=== PATIENT | female | born 1955 | race Caucasian/White ===

== ENCOUNTER 2024-12-22 18:13 | Inpatient (IN) | payer MEDICARE, MEDICAID, SELFPAY ==
--- OUTSIDE RECORDS SUMMARY | 2024-12-21 12:20 | XMS_ITS | Encounter Summary ---
Author Organization [facility] Address [address] [facility] [address] [place] [phone] Phone Care Team Providers Care New Car Inspector Name Role Phone Pcp, Unknown Primary Care Provider Unavailabl e Reason for Visit * Reason Comments Mental Health Problem * Auth/Cert (Routine) Specialty Diagnoses / Procedures Referred By Carmelo t Referred To Contact Diagnoses Suicidal ideation Referral ID Status Reason Start Date Expiration Date Visits Re quested Visits Authorized [id number] 1 1 Encounter Details Date Type Department Care Team (Latest Contact Info) Description 12/21/2024 12:20 PM EDT - 12/22/2024 5:50 PM EDT Hospital Encounter [facility] [address] [place] [address] Leo Rivera MD [address] [place] [id number] carol Handy Campbell MD [address] [place] [id number] Komal Hernandez MD [address] [place] [phone] Austin Bernal MD [address] [place] [id number] Discharge Disposition: Another Health Care Institution Not Defined Social History Tobacco Use Types Packs/Day Years Used Date Smoking Tobacco: Every Day Cigarettes Smokeless Tobacco: Never Tobacco Cessation:Ready to Q uit: Not Asked; Counseling Given: Not Answered Alcohol Use Standard Drinks/Week Comments Not Currently 0 (1 standard drink = 0.6 oz pur e alcohol) Education Answer Date Recorded Are you interested in more education? Not on gt e 07/05/2022 Are you concerned about learning? Not on file 07/05/2022 No 07/05/2022 No 07/05/2022 Food Answer Date Recorded Within the past 6 months we worried whether our food would run out before we got money to buy more. Never True 12/21/2024 Within the past 6 months the food we bought just didn't last and we didn't have enough money to get more. Never True Residential Stability Answer Date Recor ded What is your housing situation today? I have bridgett sing 12/21/2024 How many times have you move d in the past 12 months? Zero (I did not move) 12/21/2024 Paying for Meds Answer Date Recorded Do you have trouble paying for medicines? No 12/21/2024 Paying Utility Bills Answer Date Record ed Do you have trouble paying your heating or elect ricity bill? No 12/21/2024 Transportation Answer Date Recorded Has the lack of transportati on kept you from medical appointments or from getting medications? No 12/21/2024 Digital Access Answer Date Recorded No 12/21/2024 Yes 12/21/2024 Do you have reliable internet access at home? Ye s 12/21/2024 Do you have a device (e.g., phone, tablet, computer) with a working camera? Yes 12/21/2024 Intimate Partner Violence Answer Date R ecorded Are you denied basic needs s uch as food, clothing, or medical care? No 12/21/2024 In the past 12 months have y ou been in a relationship with a person who hurts, threatens, or tries to control you? No 12/21/2024 Are you denied basic needs s uch as food, clothing, or medical care? No 12/21/2024 In the past 12 months have y ou been in a relationship with a person who hurts, threatens, or tries to control you? No 12/21/2024 Comments Unknown Sex and Gender Information Value Date Recorded Sex Assigned at Female 12/21/2024 12:04 PM EDT Legal Sex Female 9:53 PM EDT Gender Identity Female 12/21/2024 12:04 PM EDT Sexual Orientation Straight 12/21/2024 12 :04 PM EDT documented as of this encounter Last Filed Vital Signs Vital Sign Reading Time Taken Comments Blood Pressure 135/82 12/22/2024 5:43 PM EDT Pulse 88 12/22/2024 5:43 PM EDT Temperature 36.5 C (97.7 F) 12/22/2024 5:43 PM EDT Respiratory Rate 18 12/22/2024 5:43 PM EDT Oxygen Saturation 97% 12/22/2024 5:43 PM EDT Inhaled Oxygen Concentration - - Weight 70.3 kg (155 lb) 12/21/2024 12:08 PM EDT Height 160 cm (5' 3 ) 12/21/2024 12:08 PM EDT Body Mass Index 27.46 12/21/2024 12:08 PM EDT documented in this encounter Functional Status * Calculated C-SSRS Risk Score (Lifetime/Recent) Answer Date of Assessment Author High Risk 12/21/2024 12:05 PM EDT Roselyn Tony RN * [place] Suicide Severity Rating Scale (Screener/Recent Self-Report) Question Answer Date of Assessment Author 1. Wish to be (Past 1 Month) Yes 12:05 PM EDT Roselyn Tony RN 2. Non-Specific Active Suici kayden Thoughts (Past 1 Month) Yes 12/21/2024 12:05 PM EDT Ron Tony RN 3. Active Suicidal Ideation with any Methods (Not Plan) Without Intent to Act (Past 1 Month) Yes 12/21/2024 12:05 PM EDT Roselyn Romero RN 4. Active Suicidal Ideation with Some Intent to Act, Without Specific Plan (Past 1 Month) No 12/21/2024 12:05 PM EDT Roselyn Romero, RN 5. Active Suicidal Ideation with Specific Plan and Intent (Past 1 Month) Yes 12/21/2024 12:05 PM EDT Roselyn Tony, RN 6. Suicidal Behavior (Lifetime) Yes 12:05 PM EDT Roselyn Tony RN documented as of this encounter Discharge Summaries * Fadi Vigil PA-C - 12/22/2024 4:48 PM EDT Emergency Department Observation Disposition Note Arrival Date: 12/21/2024 Chief Complaint Patient presents with Mental Health Problem Observation course: No acute events throughout the the day while in psychiatric observation. Today patient was accepted to psychiatric facility for continued management of acute on chronic psychiatric illness. Test results: No orders to display Results for orders placed or performed during the hospital encounter of 12/21/24 Toxicology screen, urine Specimen: Urine Result Value Ref Range URINE CANNABINOIDS NONE DETECTED NONE DETECTED URINE COCAINE METAB NONE DETECTED NONE DETECTED URINE AMPHETAMINES NONE DETECTED NONE DETECTED URINE METHADONE NONE DETECTED NONE DETECTED URINE OPIATES NONE DETECTED NONE DETECTED URINE PHENCYCLIDINE NONE DETECTED NONE DETECTED URINE OXYCODONE NONE DETECTED NONE DETECTED URINE BARBITURATES NONE DETECTED NONE DETECTED URINE BENZODIAZEPINE Positive (*) NONE DETECTED URINE BUPRENORPHINE NONE DETECTED NONE DETECTED Fentanyl, urine NONE DETECTED NONE DETECTED Ethanol, blood Specimen: Blood Result Value Ref Range ETHANOL <10 <10 mg/dL LFTs (hepatic panel) Specimen: Blood Result Value Ref Range ALKALINE PHOSPHATASE 69 39 - 117 U/L TOTAL BILIRUBIN 0.4 0.0 - 1.2 mg/dL DIRECT BILIRUBIN 0.2 0.0 - 0.2 mg/dL Bilirubin (Indirect) 0.2 0 - 1.5 mg/dL AST 20 0 - 37 U/L ALT 18 0 - 40 U/L TOTAL PROTEIN 6.9 6.5 - 8.0 g/dL ALBUMIN 4.2 3.9 - 4.8 g/dL GLOBULIN 2.7 1 - 4.8 g/dL A/G Ratio 1.56 1.00 - 4.80 RATIO Basic metabolic panel Specimen: Blood Result Value Ref Range SODIUM 136 133 - 146 mmol/L CHLORIDE 103 96 - 108 mmol/L POTASSIUM 4.4 3.3 - 5.1 mmol/L CO2 22 21 - 35 mmol/L BUN 18 6 - 19 mg/dL CREATININE 1.00 0.5 - 1.5 mg/dL GLUCOSE 100 (H) 70 - 99 mg/dL CALCIUM 9.3 8.4 - 10.3 mg/dL EGFR 61 >59 mL/min/1.73m2 ANION GAP 15 10 - 20 mmol/L CBC and differential Specimen: Blood Result Value Ref Range WBC 6.13 4.00 - 11.00 K/uL RBC 4.69 4.00 - 5.20 M/uL HGB 13.2 12.0 - 16.0 g/dL HCT 39.2 36.0 - 46.0 % PLT 260 150 - 450 K/uL MCV 83.6 80.0 - 100.0 fL MCH 28.1 27.0 - 31.0 pg MCHC 33.7 32.0 - 36.0 g/dL RDW 13.1 11.5 - 14.5 % MPV 8.7 8.4 - 12.0 fL NRBC 0.00 0.00 /100 WBCs ABSOLUTE NRBC 0.00 0.00 K/uL DIFF METHOD Auto NEUTS 66.6 48.0 - 76.0 % LYMPHS 22.7 18.0 - 41.0 % MONOS 7.2 4.0 - 11.0 % EOS 2.1 0.0 - 5.0 % BASOS 1.1 0.0 - 1.5 % Granulocytes, immature (%) 0.3 0.0 - 0.9 % ABSOLUTE NEUTS 4.08 1.92 - 7.60 K/uL ABSOLUTE LYMPHS 1.39 0.72 - 4.10 K/uL ABSOLUTE MONOS 0.44 0.16 - 1.10 K/uL ABSOLUTE EOS 0.13 0.00 - 0.50 K/uL ABSOLUTE BASOS 0.07 0.00 - 0.15 K/uL Granulocytes, immature 0.02 0.00 - 0.09 K/uL Brief discharge exam: BP 132/77 Pulse 74 Temp 36.4 ??C (97.5 ??F) (Tympanic) Resp 16 Ht 160 cm (5' 3 ) Wt 70.3 kg (155 lb) SpO2 96% BMI 27.46 kg/m?? Constitutional: Afebrile, nontoxic in appearance, in NAD. Cardiovascular: Regular rate. Hands and feet warm and well-perfused. Respiratory: Speaking in full sentences, no respiratory distress. MS: Moving all extremities. Neuro: Patient alert and oriented. Non-focal. Skin: Warm, dry. Psych: SI Mood congruent. Denies HI/AH/VH. Cooperative. Vital signs reviewed. Nurses notes reviewed. Diagnosis: Clinical Impression Diagnosis Description Comment Final diagnoses Suicidal ideation Suicidal ideation -- Hypertension, unspecified type Hypertension, unspecified type -- Final Disposition: Transferred Disposition plan: [facility] Communication with outpatient providers: per [facility] Discharge management: 30 minutes or less spent on discharge management on the observation dischargeday. Fadi Vigil PA-C Cosigned by Leo Rivera MD at 12/22/2024 5:51 PM EDT Associated attestation - Leo Rivera MD - 12/22/2024 5:51 PM EDT I confirm that I have reviewed and agree with the plan from the [facility]. documented in this encounter Discharge Instructions * Attachments The following attachments cannot be sent through Care Everywhere. * Hypertension: General Info (Iranian) documented in this encounter Medications at Time of Discharge acetaminophen (TYLENOL) 325 mg tablet Take 650 mg by mouth 3 (three) times a day as needed. cloNIDine HCL (CATAPRES) 0.1 MG tablet Take 0.1 mg by mouth daily as needed (RLS and anxiety). 11/12/2024 docusate (COLACE) 100 mg tablet Take 100 mg by mouth 2 (two) times a day as needed for mild constipation. FLUoxetine (PROZAC) 20 MG capsule Take 20 mg by mouth daily. ibuprofen (ADVIL,MOTRIN) 800 MG tablet Take 800 mg by mouth every 8 (eight) hours as needed for pain (specific location in comments). INVEGA SUSTENNA 117 mg/0.75 mL Syrg IM injection syringe Inject 117 mg into the muscle every 30 (thirty) days. LORazepam (ATIVAN) 1 MG tablet Take 1 mg by mouth 3 (three) times a day as needed for anxiety. multivitamin per tablet as directed Orally QD polyethylene glycol (MIRALAX) 17 gram packet Take 17 g by mouth daily as needed for mild constipation. propranoloL (INDERAL) 10 MG immediate release tablet Take 20 mg by mouth 3 (three) times a day as needed (anxiety). QUEtiapine (SEROQUEL) 200 MG tablet Take 200 mg by mouth 2 (two) times a day. QUEtiapine (SEROQUEL) 25 MG tablet Take 25 mg by mouth 4 (four) times a day as needed (anxiety, agitation). QUEtiapine (SEROQUEL) 50 MG tablet Take 50 mg by mouth nightly at bedtime. 11/12/2024 clonazePAM (KLONOPIN) 1 MG tablet Take 1 mg by mouth 3 (three) times a day as needed for anxiety. 11/23/2024 Lactobacillus acidophilus Cap as directed Orally QD omega-3 fatty acids (FISH OIL CONCENTRATE) 1,000 mg Cap Take 1 capsule by mouth as needed. documented as of this encounter Consult Notes Only the most recent of 2 notes is shown. * Aubree Galeana - 12/22/2024 11:53 AM EDT Met with the client for daily reassessment. Client appeared her stated age, was dressed in hospitalattire, and was alert and oriented x4. She presented as calm, cooperative, and pleasant throughout the interaction. Client reported feeling better after taking medication for akathisia. She denied suicidal or homicidal ideation and auditory or visual hallucinations at this time, though noted she often feels like ???crawling out of her skin.?? She stated that she slept well and ate breakfast this morning. Client is agreeable to the ongoing bed search plan. Aubree Galeana LCSW documented in this encounter ED Notes * Fadi Vigil PA-C - 12/22/2024 4:46 PM EDT EKG ordered at request of accepting psychiatric facility. NSR 74 bpm. Normal intervals. No ectopy. Left axis. No acute ischemic changes. * Curt Patel RN - 12/22/2024 12:47 PM EDT ED Nursing Progress Note Pt requesting medication for anxiety. MD Obando in the room and consulted by this RN who states we should try Seroquel first. Pt refusing seroquel, states it makes her dizzy d/t invega sustenna. Pt states she would rather wait until ativan is due. * Curt Patel RN - 12/22/2024 9:00 AM EDT ED Nursing Progress Note Pt up to nurses station requesting ativan for akathesia sx. Per PRN order unable to give at this time. MD notified, who orders benadryl 50 mg PRN. * Bertha Mtz RN - 12/22/2024 6:18 AM EDT ED Nursing Progress Note Pt came to the nurses station asking for gingerale, tylenol and ativan. Given her request and per MAR. Pt states she had a good nights sleep. Pleasant, calm and cooperative at this time * Bertha Mtz RN - 12/22/2024 3:52 AM EDT ED Nursing Progress Note Pt asleep at this time, breathing even and unlabored with equal rise and fall of chest, making independent movements in bed, in NAD * Bertha Mtz RN - 12/22/2024 1:59 AM EDT ED Nursing Progress Note Pt asleep at this time, breathing even and unlabored with equal rise and fall of chest, making independent movements in bed, in NAD * Bertha Mtz RN - 12/22/2024 12:07 AM EDT ED Nursing Progress Note Pt asleep at this time, breathing even and unlabored with equal rise and fall of chest, making independent movements in bed, in NAD * Bertha Mtz RN - 12/21/2024 10:15 PM EDT ED Nursing Progress Note Daughter Juani called for an update, spoke with her about how the pt will remain a voluntary bedsearch. Juani mentioned that if possible to avoid [facility] as a placement for the pt due to apast experience she had there that was traumatizing. Will relay to dayshift team that the daughter and pt are looking to either stay at our facility or [facility] that it would be best for the pt. * Leo Rivera MD - 12/21/2024 5:23 PM EDT Emergency Department Observation Initial Note Arrival Date: 12/21/2024 Chief Complaint Patient presents with Mental Health Problem History of Present Illness: Ilsa Powers is a 69 y.o. female, h/o depression, here with suicidal ideation with plan ED Course: Patient presented with primary psychiatric complaints. The patient was medically cleared for [facility] evaluation. The patient was evaluated by [facility] who recommended inpatient psychiatric hospitalization. The patient was placed in ED psychiatric observation status for continued monitoring and reassessmentswhile awaiting placement. Relevant past medical history: No past medical history on file. Social history: Social History Socioeconomic History Marital status: Single Spouse name: Not on file Number of children: Not on file Years of education: Not on file Highest education level: Not on file Occupational History Not on file Tobacco Use Smoking status: Every Day Types: Cigarettes Smokeless tobacco: Never Vaping Use Vaping status: never used Substance and Sexual Activity Alcohol use: Not Currently Drug use: Never Sexual activity: Not Currently Other Topics Concern Not on file Social History Narrative Not on file Family history: No family history on file. Physical Exam: Constitutional: Afebrile, nontoxic in appearance, in NAD. Cardiovascular: Regular rate. Hands and feet warm and well-perfused. Respiratory: Speaking in full sentences, no respiratory distress. MS: Moving all extremities. Neuro: Grossly non-focal. Vision is grossly intact to both eyes, EOM grossly intact, PERRL. Hearingis grossly intact to both ears. No olfactory deficits are noted. No obvious facial sensory deficitsare noted. Motor function of the face is equal and symmetric. Shoulder shrug is intact. Tongue is in the midline. Skin: Warm, dry. Psych: Endorses SI. Denies HI/AH/VH. Cooperative. Vital signs reviewed. Nurses notes reviewed. Observation Medical Decision Making and Plan: Continue bed search per [facility] recommendations Ongoing mental health evaluation and treatment pending disposition as determined by [facility] Routine psych consult at 24 hours, appreciate recommendations Continue home meds PRN Ativan for agitation/anxiety Disposition endpoints: If [facility] finds an inpatient bed, then the patient will be admitted or transferred to the appropriate facility. [facility] to reassess need for inpatient psychiatric placement. Section 12: Alisa Rivera MD * Phylicia Mauricio RN - 12/21/2024 3:54 PM EDT ED Nursing Progress Note [facility] at bedside * Phylicia Mauricio RN - 12/21/2024 3:14 PM EDT ED Nursing Progress Note Patient expressing increased anxiety d/t population of pod. Patient verbally redirected and broughtback into her room. * Phylicia Mauricio RN - 12/21/2024 2:47 PM EDT ED Nursing Progress Note Patient ambulating around milieu independently. Requesting daily medications, aware. * Roselyn Tony RN - 12/21/2024 11:57 AM EDT Pt arrived via ambulance. Roomed on arrival and report taken at the bedside. Pt [facility] for eval of SI with plan and intent. Pt reports she started Invega in October. It makes her feel jittery and shaky. Her daughter really wanted her to give a real chance so she did the second dose in November. She is very tired of feeling unwell and would rather be . Pt states she had some ativan [employer] and it has helped her anxiety some. Calm and answering questions on arrival. * Leo Rivera MD - 12/21/2024 11:52 AM EDT Chief Complaint Chief Complaint Patient presents with Mental Health Problem History of Present Illness The patient, Ilsa Powers,is a 69 y.o. female who presents for evaluation of Mental Health Problem The patient reports History of depression who is presenting due to suicidal ideation. She was recently started on Invega injections does not believe they are working. She lives at the [facility] and was complaining of thoughts of wanting to harm herself with a plan to choke herself. No HI or AVH. She took Ativan prior to arrival which did help with her anxiety. She denies regular alcohol or drug use. No self-harm reported. Unless otherwise specified, I have reviewed and agree with the triage and nursing notes. ROS A ten point review of systems was negative except what was noted in the HPI. Review of Systems Past Medical History No past medical history on file. Past Surgical History No past surgical history on file. Home Medications Prior to Admission medications Medication Sig acetaminophen (TYLENOL) 325 mg tablet 650 mg, 3 times daily PRN cloNIDine HCL (CATAPRES) 0.1 MG tablet 0.1 mg, Daily as needed docusate (COLACE) 100 mg tablet 100 mg, 2 times daily PRN FLUoxetine (PROZAC) 20 MG capsule 20 mg, Daily ibuprofen (ADVIL,MOTRIN) 800 MG tablet 800 mg, Every 8 hours PRN INVEGA SUSTENNA 117 mg/0.75 mL Syrg IM injection syringe 117 mg, Every 30 days LORazepam (ATIVAN) 1 MG tablet 1 mg, 3 times daily PRN multivitamin per tablet as directed Orally QD polyethylene glycol (MIRALAX) 17 gram packet 17 g, Daily as needed propranoloL (INDERAL) 10 MG immediate release tablet 20 mg, 3 times daily PRN QUEtiapine (SEROQUEL) 200 MG tablet 200 mg, 2 times daily QUEtiapine (SEROQUEL) 25 MG tablet 25 mg, 4 times daily PRN QUEtiapine (SEROQUEL) 50 MG tablet 50 mg, Nightly clonazePAM (KLONOPIN) 1 MG tablet 1 mg, 3 times daily PRN Lactobacillus acidophilus Cap as directed Orally QD omega-3 fatty acids (FISH OIL CONCENTRATE) 1,000 mg Cap 1 capsule, Oral, As needed Allergies No Known Allergies Social and Family History Social History Tobacco Use Smoking status: Every Day Types: Cigarettes Smokeless tobacco: Never Substance Use Topics Alcohol use: Not Currently Social History Substance and Sexual Activity Drug Use Never No family history on file. Physical Exam Vital Signs: ED Triage Vitals [12/21/24 1208] Encounter Vitals Group BP (!) 189/109 Systolic BP Percentile Diastolic BP Percentile Heart Rate 89 Respiratory Rate 16 Temperature 36.5 ??C (97.7 ??F) Temp Source Tympanic SpO2 96 % Weight 155 lb Height 5' 3 Head Circumference Peak Flow Pain Score Pain Loc Pain Education Exclude from Growth Chart Physical Exam Vitals and nursing note reviewed. Constitutional: Appearance: Normal appearance. HENT: Head: Normocephalic and atraumatic. Mouth/Throat: Mouth: Mucous membranes are moist. Pharynx: Oropharynx is clear. Eyes: Extraocular Movements: Extraocular movements intact. Pupils: Pupils are equal, round, and reactive to light. Cardiovascular: Rate and Rhythm: Normal rate and regular rhythm. Pulmonary: Effort: Pulmonary effort is normal. Breath sounds: Normal breath sounds. Musculoskeletal: General: No signs of injury. Normal range of motion. Cervical back: Normal range of motion. Skin: General: Skin is warm and dry. Neurological: General: No focal deficit present. Mental Status: She is alert and oriented to person, place, and time. Mental status is at baseline. Psychiatric: Comments: Depressed mood. Endorsing SI Laboratory Testing Results for orders placed or performed during the hospital encounter of 12/21/24 Toxicology screen, urine Specimen: Urine Result Value Ref Range URINE CANNABINOIDS NONE DETECTED NONE DETECTED URINE COCAINE METAB NONE DETECTED NONE DETECTED URINE AMPHETAMINES NONE DETECTED NONE DETECTED URINE METHADONE NONE DETECTED NONE DETECTED URINE OPIATES NONE DETECTED NONE DETECTED URINE PHENCYCLIDINE NONE DETECTED NONE DETECTED URINE OXYCODONE NONE DETECTED NONE DETECTED URINE BARBITURATES NONE DETECTED NONE DETECTED URINE BENZODIAZEPINE Positive (*) NONE DETECTED URINE BUPRENORPHINE NONE DETECTED NONE DETECTED Fentanyl, urine NONE DETECTED NONE DETECTED Ethanol, blood Specimen: Blood Result Value Ref Range ETHANOL <10 <10 mg/dL LFTs (hepatic panel) Specimen: Blood Result Value Ref Range ALKALINE PHOSPHATASE 69 39 - 117 U/L TOTAL BILIRUBIN 0.4 0.0 - 1.2 mg/dL DIRECT BILIRUBIN 0.2 0.0 - 0.2 mg/dL Bilirubin (Indirect) 0.2 0 - 1.5 mg/dL AST 20 0 - 37 U/L ALT 18 0 - 40 U/L TOTAL PROTEIN 6.9 6.5 - 8.0 g/dL ALBUMIN 4.2 3.9 - 4.8 g/dL GLOBULIN 2.7 1 - 4.8 g/dL A/G Ratio 1.56 1.00 - 4.80 RATIO Basic metabolic panel Specimen: Blood Result Value Ref Range SODIUM 136 133 - 146 mmol/L CHLORIDE 103 96 - 108 mmol/L POTASSIUM 4.4 3.3 - 5.1 mmol/L CO2 22 21 - 35 mmol/L BUN 18 6 - 19 mg/dL CREATININE 1.00 0.5 - 1.5 mg/dL GLUCOSE 100 (H) 70 - 99 mg/dL CALCIUM 9.3 8.4 - 10.3 mg/dL EGFR 61 >59 mL/min/1.73m2 ANION GAP 15 10 - 20 mmol/L CBC and differential Specimen: Blood Result Value Ref Range WBC 6.13 4.00 - 11.00 K/uL RBC 4.69 4.00 - 5.20 M/uL HGB 13.2 12.0 - 16.0 g/dL HCT 39.2 36.0 - 46.0 % PLT 260 150 - 450 K/uL MCV 83.6 80.0 - 100.0 fL MCH 28.1 27.0 - 31.0 pg MCHC 33.7 32.0 - 36.0 g/dL RDW 13.1 11.5 - 14.5 % MPV 8.7 8.4 - 12.0 fL NRBC 0.00 0.00 /100 WBCs ABSOLUTE NRBC 0.00 0.00 K/uL DIFF METHOD Auto NEUTS 66.6 48.0 - 76.0 % LYMPHS 22.7 18.0 - 41.0 % MONOS 7.2 4.0 - 11.0 % EOS 2.1 0.0 - 5.0 % BASOS 1.1 0.0 - 1.5 % Granulocytes, immature (%) 0.3 0.0 - 0.9 % ABSOLUTE NEUTS 4.08 1.92 - 7.60 K/uL ABSOLUTE LYMPHS 1.39 0.72 - 4.10 K/uL ABSOLUTE MONOS 0.44 0.16 - 1.10 K/uL ABSOLUTE EOS 0.13 0.00 - 0.50 K/uL ABSOLUTE BASOS 0.07 0.00 - 0.15 K/uL Granulocytes, immature 0.02 0.00 - 0.09 K/uL Radiology Testing No orders to display ED Medication from 12/21/2024 1152 to 12/21/20241724 Date/Time Order Dose Route Action Action by Comments 12/21/20241543 EDT LORazepam (ATIVAN) tablet 1 mg 1 mg Oral Given Phylicia Mauricio RN -- 12/21/20241543 EDT FLUoxetine (PROzac) capsule 20 mg 20 mg Oral Not Given Phylicia Mauricio RN -- MDM Assessment and Plan: Patient is a 69-year-old female presenting due to suicidal ideation with plan. Will obtain [facility] evaluation for further recommendations. No signs of trauma or self-harm on exam. Patient has no medical complaints at this time. ED Course as of 12/21/241724Dec 21, 20241724 [facility] met with patient and placed her as an inpatient bed search voluntarily. Home meds have been ordered. Patient remains calm and cooperative. Patient signed out to Dr. Campbell pending inpatient bed search [CN] ED Course User Index [CN] Leo Rivera MD Clinical Impressions as of 12/21/241724 Suicidal ideation Clinical Impression Diagnosis Description Comment Final diagnosis Suicidal ideation Suicidal ideation -- Disposition: Patient signed out to Leo Sifuentes MD 12/21/241724 documented in this encounter Plan of Treatment Not on file documented as of this encounter Procedures Procedure Name Priority Date/Time Associated Diagnosis Comments TOXICOLOGY SCREEN, URINE STAT 12/21/2024 1:43 PM EDT ETHANOL, BLOOD STAT 12/21/2024 12:25 PM EDT LFTS (HEPATIC PANEL) STAT 12/21/2024 12:25 PM EDT CBC AND DIFFERENTIAL STAT 12/21/2024 12:25 PM EDT BASIC METABOLIC PANEL STAT 12/21/2024 12:25 PM EDT documented in this encounter Results * (ABNORMAL) Toxicology screen, urine (12/21/2024 1:43 PM EDT) URINE CANNABINOIDS NONE DETECTED NONE DETECTED [facility] Comment:Cutoff: 50 ng/mL URINE COCAINE METAB NONE DETECTED NONE DETECTED [facility] Comment:Cutoff: 300 ng/mL URINE AMPHETAMINES NONE DETECTED NONE DETECTED [facility] Comment:Cutoff: 1000 ng/mL URINE METHADONE NONE DETECTED NONE DETECTED [facility] Comment:Cutoff: 300 ng/mL URINE OPIATES NONE DETECTED NONE DETECTED [facility] Comment:Cutoff: 300 ng/mL URINE PHENCYCLIDINE NONE DETECTED NONE DETECTED [facility] Comment:Cutoff: 25 ng/mL URINE OXYCODONE NONE DETECTED NONE DETECTED [facility] Comment:Cutoff: 300 ng/mL URINE BARBITURATES NONE DETECTED NONE DETECTED [facility] Comment:Cutoff: 200 ng/mL URINE BENZODIAZEPINE Positive(A) NONE DETECTED [facility] Comment:Cutoff: 200 ng/mL URINE BUPRENORPHINE NONE DETECTED NONE DETECTED [facility] Comment:Cutoff: 5 ng/mL Fentanyl, urine NONE DETECTED NONE DETECTED [facility] Comment: Cutoff: 5 ng/mL INTERPRETATION FOR TOXICOLOGY PANEL: These results are unconfirmed and should be used for Medical Treatment purposes only. Urine (Urine) 12/21/2024 1:4 3 PM EDT 12/21/2024 1:57 PM EDT Aaron Galvan MD, MATTI URINE ORDERABLES Final Result [address] [id number] * Ethanol, blood (12/21/2024 12:25 PM EDT) ETHANOL <10 <10 mg/dL [facility] Blood 12/21/2024 12:2 5 PM EDT 12/21/2024 12:31 PM EDT Aaron Galvan MD, MBA LAB BLOOD ORDERABLES Fi nal Result Performing Organization Address [facility] Co de Phone Number [address] [address] * LFTs (hepatic panel) (12/21/2024 12:25 PM EDT) ALKALINE PHOSPHATASE 69 39 - 117 U/L [facility] TOTAL BILIRUBIN 0.4 0.0 - 1.2 mg/dL [facility] DIRECT BILIRUBIN 0.2 0.0 - 0.2 mg/dL [facility] Bilirubin (Indirect) 0.2 0 - 1.5 mg/dL [facility] AST 20 0 - 37 U/L [facility] ALT 18 0 - 40 U/L [facility] TOTAL PROTEIN 6.9 6.5 - 8.0 g/dL [facility] ALBUMIN 4.2 3.9 - 4.8 g/dL [facility] GLOBULIN 2.7 1 - 4.8 g/dL [facility] A/G Ratio 1.56 1.00 - 4.80 RATIO [facility] Blood 12/21/2024 12:2 5 PM EDT 12/21/2024 12:31 PM EDT Aaron Galvan MD, MBA LAB BLOOD ORDERABLES Fi nal Result Performing Organization Address [facility]/ZIP Co de Phone Number [address] [address] * (ABNORMAL) Basic metabolic panel (12/21/2024 12:25 PM EDT) SODIUM 136 133 - 146 mmol/L [facility] CHLORIDE 103 96 - 108 mmol/L [facility] POTASSIUM 4.4 3.3 - 5.1 mmol/L [facility] CO2 22 21 - 35 mmol/L [facility] BUN 18 6 - 19 mg/dL [facility] CREATININE 1.00 0.5 - 1.5 mg/dL [facility] GLUCOSE 100(H) 70 - 99 mg/dL [facility] CALCIUM 9.3 8.4 - 10.3 mg/dL [facility] EGFR 61 >59 mL/min/1.7 3m2 [facility] Comment:Estimated glomerular filtration rate calculated using the CKD-EPI refit equation. ANION GAP 15 10 - 20 mmol/L [facility] Blood 12/21/2024 12:2 5 PM EDT 12/21/2024 12:31 PM EDT Aaron Cole [place], MATTI LAB BLOOD ORDERABLES nal Result [facility] [address] [place] [address] * CBC and differential (12/21/2024 12:25 PM EDT) WBC 6.13 4.00 - 11.00 K/uL [facility] RBC 4.69 4.00 - 5.20 M/uL [facility] HGB 13.2 12.0 - 16.0 g/dL [facility] HCT 39.2 36.0 - 46.0 % [facility] PLT 260 150 - 450 K/uL [facility] MCV 83.6 80.0 - 100.0 fL [facility] MCH 28.1 27.0 - 31.0 pg [facility] MCHC 33.7 32.0 - 36.0 g/dL [facility] RDW 13.1 11.5 - 14.5 % [facility] MPV 8.7 8.4 - 12.0 fL [facility] NRBC 0.00 0.00 /100 WBCs [facility] ABSOLUTE NRBC 0.00 0.00 K/uL [facility] DIFF METHOD Auto [facility] NEUTS 66.6 48.0 - 76.0 % [facility] LYMPHS 22.7 18.0 - 41.0 % [facility] MONOS 7.2 4.0 - 11.0 % [facility] EOS 2.1 0.0 - 5.0 % [facility] BASOS 1.1 0.0 - 1.5 % [facility] Granulocytes, immature (%) 0.3 0.0 - 0.9 % [facility] ABSOLUTE NEUTS 4.08 1.92 - 7.60 K/uL [facility] ABSOLUTE LYMPHS 1.39 0.72 - 4.10 K/uL [facility] ABSOLUTE MONOS 0.44 0.16 - 1.10 K/uL [facility] ABSOLUTE EOS 0.13 0.00 - 0.50 K/uL [facility] ABSOLUTE BASOS 0.07 0.00 - 0.15 K/uL [facility] Granulocytes, immature 0.02 0.00 - 0.09 K/uL [facility] Blood 12/21/2024 12:2 5 PM EDT 12/21/2024 12:31 PM EDT Aaron Galvan MD, MATTI LAB BLOOD ORDERABLES nal Result Performing Organization Address City/State/[facility] Co de Phone Number [facility] [address] [place] [address] documented in this encounter Visit Diagnoses Diagnosis Suicidal ideation- Primary Suicidal ideation Hypertension, unspecified type documented in this encounter Admitting Diagnoses Diagnosis Suicidal ideation documented in this encounter Administered Medications Active Administered Medications - up to 3 most recent administrations Medication Order MAR Action Action Date Dose Rate Site acetaminophen (TYLENOL) tablet 650 mg 650 mg, Oral, 3 times daily PRN, mild pain or 1-3 (on a general 0-10 scale), moderate pain or 4-6 (on a general 0-10 scale), Starting on Fri12/21/24 at 1541 Given 12/22/2024 6:12 AM EDT 650 mg diphenhydrAMINE (BENADRYL) capsule 50 mg 50 mg, Oral, Every 6 hours PRN, other (free text field), anxiety or akithesia, Starting on Fri12/22/24 at 0853 Given 12/22/2024 9:09 AM EDT 50 mg FLUoxetine (PROzac) capsule 20 mg 20 mg, Oral, Daily, First dose on Fri12/21/24 at 1545 Given 12/22/2024 9:08 AM EDT 20 mg LORazepam (ATIVAN) tablet 1 mg 1 mg, Oral, 3 times daily PRN, anxiety, Starting on Fri12/21/24 at 1540 Given 12/22/2024 1:49 PM EDT 1 mg Given 12/22/2024 6:14 AM EDT 1 mg Given 12/21/2024 3:44 PM EDT 1 mg propranoloL (INDERAL) IMMEDIATE release tablet 20 mg 20 mg, Oral, 3 times daily PRN, anxiety, Starting on Fri12/21/24 at 1540, take consistently with meals or on an empty stomach. Given 12/22/2024 9:09 AM EDT 20 mg Given 12/21/2024 8:01 PM EDT 20 mg QUEtiapine (SEROQUEL) tablet 200 mg 200 mg, Oral, 2 times daily, First dose on Fri12/21/24 at 2100 Given 12/21/2024 8:09 PM EDT 200 mg documented in this encounter Active and Recently Administered Medications Times are shown in EDT. Scheduled Medication Order 12/20/2024 12/21/2024 12/22/2024 FLUoxetine (PROzac) capsule 20 mg 20 mg, Oral, Daily, First dose on Fri12/21/24 at 1545 1544 (Not Given - Provider: Phylicia Mauricio RN - Reason: Patient/family refused) 09 (Given - Provider: Curt Patel, IZZY) QUEtiapine (SEROQUEL) tablet 200 mg 200 mg, Oral, 2 times daily, First dose on Fri12/21/24 at 2099 2008 (Given - Provider: Bertha Mtz RN) 0847 (Not Given - Provider: Curt Patel, RN - Reason: Patient/family refused - Comment: Pt states she only gets this at night. Per Nanette CARRILLO, pt ordered for BID but refused AM dose x2 weeks)2099 (Due) QUEtiapine (SEROQUEL) tablet 50 mg 50 mg, Oral, Nightly, First dose on Fri12/21/24 at 2100 2005 (Not Given - Provider: Bertha Mtz RN - Reason: Patient/family refused) 2100 (Due) PRN Medication Order 12/20/2024 12/21/2024 12/22/2024 acetaminophen (TYLENOL) tablet 650 mg 650 mg, Oral, 3 times daily PRN, mild pain or 1-3 (on a general 0-10 scale), moderate pain or 4-6 (on a general 0-10 scale), Starting on Fri12/21/24 at 1541 0612 (Given - Provid er: Bertha Mtz RN) cloNIDine HCL (CATAPRES) tablet 0.1 mg 0.1 mg, Oral, Daily as needed, RLS and anxiety, Starting on Fri12/21/24 at 1540 diphenhydrAMINE (BENADRYL) capsule 50 mg 50 mg, Oral, Every 6 hours PRN, other (free text field), anxiety or akithesia, Starting on Fri12/22/24 at 0853 0909 (Given - Provid er: Curt Patel RN) docusate sodium (COLACE) capsule 100 mg 100 mg, Oral, 2 times daily PRN, mild constipation, moderate constipation, Starting on Fri12/21/24 at 1540 LORazepam (ATIVAN) tablet 1 mg 1 mg, Oral, 3 times daily PRN, anxiety, Starting on Fri12/21/24 at 1540 1544 (Given - Provider: Phylicia Mauricio RN) 0614 (Given - Provider: Bertha Mtz RN)1349 (Given - Provider: Curt Patel, IZZY) propranoloL (INDERAL) IMMEDIATE release tablet 20 mg 20 mg, Oral, 3 times daily PRN, anxiety, Starting on Fri12/21/24 at 1540, take consistently with meals or on an empty stomach. 2000 (Given - Provider: Bertha Mtz RN) 0909 (Given - Provider: Curt Patel, IZZY) QUEtiapine (SEROQUEL) tablet 25 mg 25 mg, Oral, 4 times daily PRN, anxiety, agitation, Starting on Fri12/21/24 at 1541 documented in this encounter Care Teams New Car Inspector Relationship Specialty Start Date End Date Pcp, Unknown PCP - General 10/18/24 documented as of this encounter Additional Source Comments The information contained in this document represents components of the legal health record. It is not the complete legal health record.[facility]
--- NOTE | 2024-12-22 18:49 | PC.NURSE ---
Nursing note: 69 year old female DX: Schizoaffective disorder BiPolar type. Patient arrived to unit approximately 1840. Cooperative with skin check. Reports she is here due to bad reaction from Invega injection. Reports she is experiencing akathisia since initial injection in November. States it feels like I am crawling out of my skin, like I need to move all the time . Patient does have legal guardian, resides in [facility] home. Nursing assessment to be completed by oncoming shift.
--- OUTSIDE RECORDS SUMMARY | 2024-12-22 19:36 | XMS_ITS | Encounter Summary ---
Author Organization [facility] Address [address] [place] [phone] Phone Care Team Providers Care Traffic Rate Clerk Name Role Phone PiocodieDouglas DO Primary Care Provider [phone] Douglas Lee DO Unavailable Pcp, Unknown Primary Care Provider Unavailabl e Encounter Details Date Type Department Care Team ([facility] st Contact Info) Description 04/18/2017 Ancillary Orders Virtual Department [address] [place] [address] Lidia Vasquez PA-C [address] [place] [address] Breast screening; Estrogen deficiency Social History Tobacco Use Types Packs/Day Years Used Date Smoking Tobacco: Never Assessed Comments Unknown Sex and Gender Information Value Date Recorded Sex Assigned at Female 12/21/2024 12:04 PM EDT Legal Sex Female 9:53 PM EDT Gender Identity Female 12/21/2024 12:04 PM EDT Sexual Orientation Straight 12/21/2024 12 :04 PM EDT documented as of this encounter Plan of Treatment Not on file documented as of this encounter Visit Diagnoses Diagnosis Breast screening Breast screening, unspecified Estrogen deficiency Other ovarian failure documented in this encounter Care Teams Traffic Rate Clerk Relationship Specialty Start Date End Date Douglas Lee DO PCP - General 12/24/16 10/17/24 Pcp, Unknown PCP - General 10/18/24 Douglas Lee DO [address] [place] [address] [email or web address] Insurance Assigned Provider 07/12/1708/18 documented as of this encounter Additional Source Comments The information contained in this document represents components of the legal health record. It is not the complete legal health record.[facility]
--- OUTSIDE RECORDS SUMMARY | 2024-12-22 19:36 | XMS_ITS | Data Portability ---
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) MDM MODERATE MUST MEET 2 OUT OF 3 ELEMENTS: PROBLEMS, DATA OR RISK ELEMENT 1: PROBLEMS ADDRESSED OR 2 OR MORE STABLE CHRONIC ILLNESSES OR OR OR ELEMENT 2: DATA MUST MEET 1 OF 3 CATEGORIES CATEGORY 1: REVIEW OF PRIOR EXTERNAL NOTES, REVIEW OF RESULTS, ORDERING OF EACH TEST, ASSESSMENT REQUIRING INDEPENDENT HISTORIAN OR CATEGORY 2: OR CATEGORY 3: ELEMENT 3: RISK RISK OF COMPLICATIONS AND/OR MORBIDITY OR MORTALITY OF PATIENT MANAGEMENT PROVIDER MUST THOROUGHLY DOCUMENT EACH ELEMENT THAT IS COVERED [email or web address] Not available 06/05/2020 10:08:50 05/09/2023 05/09/2023 Patient agreed and verbally consents to this audio and video Telehealth appt via a secure platform [email or web address] Not available 05/09/2023 13:51:25 04/13/2024 04/13/2024 Patient presented for medication refill. Patient tolerating medication well at current dose without adverse effects. Refilled as below. Discussed plan with patient, who expressed understanding. Follow up as noted below. [email or web address] Not available 04/13/2024 11:24:33 Plan of Treatment Reminders Order Date Submit Date Provider Last Modified By Organization Details Last Modified Time Details Appointments Nurse Visit 15 2024 12:00P M Demetrius [facility] Not available Not available Not available FOLLOW UP 15 2024 12:00P M VIRIDIANA VYAS Not available Not available Not available Lab None recorded. Referral None recorded. Procedures None recorded. Surgeries None recorded. Imaging None recorded. Medication Orders propranol ol 10 mg tablet 2024 025 [facility], [address], [id number], 12/06/2024 10:02:53 lorazepam 1 mg tablet 2024 025 [id number], [address] [place], [id number], 12/06/2024 10:11:24 lorazepam 1 mg tablet 2024 025 [facility], [address] [facility] [address], [place], [id number], 12/06/2024 10:23:34 clonazepa m 1 mg tablet 2024 025 [facility], [address] [place], [address], 12/06/2024 10:10:22 quetiapin e 400 mg tablet 2024 025 [facility], [address] [place] [address], [id number], 05/12/2024 19:03:58 multivita min tablet 2024 025 [facility], [address] [place] [address], [id number], 05/12/2024 19:02:58 fluoxetin e 20 mg capsule 2024 025 [facility], [address] [place] [address], [id number], 05/12/2024 19:03:58 quetiapin e 400 mg tablet 2020 021 [facility], [address] [place] [address] [address], [place], [id number], 06/05/2020 10:09:20 trazodone 50 mg tablet 2020 021 [email or web address] [facility], [facility], [address] [place] [address], [id number], 05/09/2023 13:35:50 multivita min tablet 2020 021 [facility], [facility], [address] [place] [address], [id number], 06/05/2020 10:09:28 fluoxetin e 20 mg capsule 2020 021 [facility], [facility], [address] [place] [address], [id number], 06/05/2020 10:09:32 Patient TargetsNo targets recorded. Patient InstructionsNo instructions recorded. Reason for Referral None Reported. Problems Name Problem SNOMED Code Status Onset Date Resolution Date Notes Provider Name and Address Organization Details Recorded Time Insomnia 583247140 Active 2017 [facility] [address], [address], [facility] 8 15:35:57 Schizoph lulu 49428013 Active 2017 schizoaff ective disorder [address], [address], [facility] 8 16:28:46 Anxiety 11921285 Active [address], [address], [facility] 8 15:36:19 Depressi ve disorder 54414662 Active [address], [address], [facility] 8 15:36:24 Exposure to diethyls tilbestr ol Active 2017 AMILCAR by mother [address], [address], [facility] 8 15:40:56 Fracture of clavicle 58902468 Active 2017 fell off horse [address], [address], [facility] 8 15:37:24 Chronic kidney disease stage 3 324808390 Active 2017 [facility] CARYN [address], [address], [facility] 8 15:38:32 [facility] hyperten israel 17630996 Active [address], [address], [facility] 8 15:38:44 Anemia in chronic kidney disease 770972778 Active 2017 Lidia CARYN [address], [address], [facility] 8 15:38:59 History of acute kidney injury 13077059860 9104 Active 2017 due to toxic overdose/ suicidal attempt [facility] [address], [address], [facility] 8 16:29:29 Suicide attempt Active 2017 multiple - 09/03/15 and 06/10/16 [facility] [address], [address], [facility] 8 16:30:10 Restless ness and agitatio n 054625389 Active 2024 VIRIDIANA VYAS [address] [place] [address], [address], [facility] 5 10:43:21 Problem Notes None recorded. Medical Equipment None Reported. Allergies No known drug allergies Medications Name Sig Start Date Stop Date Status Note LastModified by Organization Details LastModified Time Prescriptio n - New 07/14 completed Not Available Not Available Not Available multivitami n tablet TAKE 1 TABLET BY MOUTH ONCE DAILY 2024 active Not Available Not Available Not Avai lable quetiapine 25 mg tablet TAKE 1 TABLET BY MOUTH UP TO 4 TIMES DAILY NEEDED FOR MILD/MODE RATE ANXIETY OR AGITATION AND 2 TABLETS NEEDED FOR MODERATE/ SEVERE ANXI active Not Available Not Available No t Available Miralax 17 gram/dose oral powder Take 17 g every day by oral route as needed. 05/08 completed Not Available Not Available Not Available clonidine HCl 0.1 mg tablet Take 1 tablet every day by oral route as needed for 30 days. 2024 active Not Available Not Available Not Avai lable acetaminoph en 325 mg tablet TAKE 2 TABLETS (650MG) BY MOUTH 3 TIMES DAILY NEEDED FOR COUGH/FEV ER 05/08 completed Not Available Not Available Not Available trazodone 50 mg tablet TAKE 1 TABLET BY MOUTH AT BEDTIME. 05/08 completed Not Available Not Available Not Available ibuprofen 800 mg tablet TAKE (1) TABLET BY MOUTH EVERY 8 HOURS NEEDED FOR PAIN 05/08 completed Not Available Not Available Not Available quetiapine 200 mg tablet TAKE 1 TABLET BY MOUTH TWICE A DAY active Not Available Not Available No t Available clonazepam 1 mg tablet TAKE 1 TABLET BY MOUTH THREE TIMES A DAY NEEDED FOR 30 DAYS 12/06 completed Not Available Not Available Not Available propranolol 10 mg tablet Take 2 tablets 3 times a day by oral route as needed for 30 days. active Not Available Not Available No t Available DOK 100 mg capsule TAKE 1 CAPSULE BY MOUTH TWICE DAILY PRN 05/08 completed Not Available Not Available Not Available cephalexin 500 mg capsule TAKE 1 CAPSULE BY MOUTH 3 TIMES A DAY FOR 5 DAYS 11/23 completed Not Available Not Available Not Available lorazepam 1 mg tablet Take 1 tablet 3 times a day by oral route as needed for 28 days. active Not Available Not Available No t Available fluoxetine 20 mg capsule TAKE 1 CAPSULE BY MOUTH EVERY DAY IN THE MORNING active Not Available Not Available No t Available quetiapine 50 mg tablet Take 1 tablet every day by oral route at bedtime for 30 days. 2024 active Not Available Not Available Not Avai lable quetiapine 400 mg tablet TAKE 1 TABLET BY MOUTH AT BEDTIME 2024 active Not Available Not Available Not Avai lable Invega Sustenna 117 mg/0.75 mL intramuscul ar syringe PLEASE SEE ATTACHED FOR DETAILED DIRECTION S active Not Available Not Available No t Available Probiotic take one tab once per day active Not Available Not Available No t Available Sentry Senior 0.4 mg-300 mcg-250 mcg tablet TAKE 1 TABLET BY MOUTH DAILY 04/13 completed Not Available Not Available Not Available Culturelle 15 billion cell sprinkle capsule TAKE 1 CAPSULE BY MOUTH ONCE DAILY prn 05/08 completed Not Available Not Available Not Available Probiotic Formula (inulin) 1 billion cell-250 mg capsule take 1 capsule by mouth once a day 05/08 completed Not Available Not Available Not Available Probiotic (B. coagulans) 10 billion cell capsule,del ayed release active Not Available Not Available Not Available Daily-Chantel (with folic acid) 400 mcg tablet 05/08 completed Not Available Not Available Not Available Vitals Date Recorded Body height Body mass index (BMI) Body weight Heart rate Oxygen saturation Oxygen saturation in Arterial blood by Pulse oximetry Systolic And Diastolic Provider Name and Address Organization Details Last Updated DateTime 5 157.48 cm 27.3 kg/m2 04333.2 6 g 90 /min 98 % 98 % 150/98 mm[Hg] Mallika Pierce [facility] 5 12:05:58 Date Recorded Body height Body mass index (BMI) Body weight Heart rate Oxygen saturation Oxygen saturation in Arterial blood by Pulse oximetry Systolic And Diastolic Provider Name and Address Organization Details Last Updated DateTime 5 157.48 cm 27.3 kg/m2 59630.2 6 g 97 /min 97 % 97 % 138/80 mm[Hg] [facility] 5 09:46:12 Social History Question Answer Notes LastModified by Organizat ion Details LastModified Time Tobacco Smoking Status Never Smoker Not Available [employer] 01/11/2020 03:36:24 What Is Your Level Of Caffeine Consumption? Moderate 2-3 Cups Per Day [id number] Information not available 01/11/2020 What Was The Date Of Your Most Recent Tobacco Screening? 11/23/2024 [email or web address] Information not available 11/23/2024 Sex: Unknown Functional Status Question Answer Note LastModified by Organizat ion Details LastModified Time What is your level of alcohol consumption? Occasional [id number] Information not available 01/11/2020 What is your exercise level? Moderate [id number] Information not available 01/11/2020 Mental Status None recorded. Family History Nothing Reported. Medical History No medical history recorded. Gynecological HistoryNo gynecological history recorded. Obstetrics History GPAL:G 0 P 0 0 0 0 Past Encounters Encounter ID Performer Location Encounter Start Date Encounter Closed Date Diagnosis/Indication Diagnosis SNOMED-CT Code Diagnosis ICD10 Code Diagnosis IMO Codes Diagnosis Note [id number] Douglas Lee [facility] [address] [place] [address], [place] [address] 07/16/2017 13:48:21 07/16/2017 15:09:59 Depressive disorder 44146362 F32.3 stable on current regimen Schizophrenia 02699146 F 20.9 stable on current regimen john orders paper work renewal case was previously discussed with DANETTE saldivar physician who has co-signed and agreed with assessment and plan Douglas Lee [facility] [address] [place] [address], [place] [address] 07/14/2018 10:59:52 07/14/2018 11:49:57 Adult health examination 646780783 Z00.00 Active or passive immunization 850353370 Z23 [id number] Douglas Lee DO [facility] [address] [place] [address],[place] [address] 07/28/2019 08:19:59 07/28/2019 13:26:43 Essential hypertension 82001775 I10 Chronic ki dney disease stage 3 567397671 N18.3 will need labwork this next visit in september Anxiety 79165097 F41.9 has had this med and this was not renewed for some reason [id number] Douglas Lee [facility] [address] [facility],[place] [address] 09/27/2019 08:37:41 09/27/2019 15:04:01 Anxiety 02588004 F41.9 stable right now on medication s Essential hypertension 11155065 I10 per pt her BP has been good Insomnia 775028159 G47.0 0 stable on medication [id number] Douglas Lee [facility] [address] [facility] [place] [address] 06/05/2020 08:10:27 06/05/2020 10:17:04 Anxiety 73402575 F41.9 stable right now on medication s Depressive disorder 3548 9007 F32.9 stable on medication s, no acute changes, no interventi on needed at this time Insomnia 376789779 G47.0 0 stable on medication , no dose increase required Schizophrenia 59918683 F 20.9 stable on 400 mg everyday no dose increase needed no significan t change in symptoms [id number] Douglas Lee [facility] [address] [facility],[place] [address] 05/09/2023 10:12:12 05/09/2023 16:01:17 Schizophrenia 43375887 F20.9 F20.89 stable on 400 mg everyday no dose increase needed no significan t change in symptoms Depressive disorder 3548 9007 F32.9 stable on medication s, no acute changes, no interventi on needed at this time [id number] Douglas Lee [facility] [address] [facility],[place] [address] 04/13/2024 08:57:39 04/13/2024 12:22:39 Renewal of prescription 616880164 Z76.0 stable Anxiety 56527306 F41.1 stable right now on medication s Schizophrenia 13479334 F 20.89 F20.0 stable on 400 mg everyday no dose increase needed no significan t change in symptoms Depressive disorder 3548 9007 F32.9 stable on medication s, no acute changes, no interventi on needed at this time [id number] [facility] [address] [facility] [place] [address] 11/23/2024 11:40:18 11/23/2024 12:53:05 Restlessness and agitation 424692016 R45.1 06760 switch to klonapin (longer activity)a tivan wears off too quicklypat ient having a lot of restlessne ss and dyskinesia with the injection which makes her more anxious Depressive disorder 3548 9007 F32.9 stable on medication s, no acute changes, no interventi on needed at this time prior to her f/u with psych Schizophrenia 08040837 F 20.89 has f/u with psych to discuss next steps related to the injection [id number] Douglas Lee DO [facility] [address] [facility],[place] [address] 12/06/2024 09:40:06 12/06/2024 10:20:47 Depression screening 452362743 Z13.31 negative Restlessne ss and agitation 417872986 R45.1 42213 will switch back to klonapin Health Concerns Section Related Observation LastModified by Organization Detai ls LastModified Time None Recorded Concern Status LastModified by Organization Details LastModified Time None Recorded Advance Directives Directive None Recorded Payers Insurance Date Sequence Insurance Name Policy Number Policy Peterson Covered Member ID Peterson Member ID Guarantor Name 11/09/2024 1 [place]: [employer] Ilsa Powers [id number] Ilsa Powers 11/09/2024 2 [place] [facility] Ilsa Gillis Gio [id number] Ilsa Powers 11/09/2024 1 [place] DOS PRIOR TO 2022 - [facility] (MEDICAID) Ilsa Powers [id number] Ilsa Powers Notes Date Note Type Note Provider Name a nd Address Organization Details Recorded Time 1 text/html ROS as noted in the HPI medication fu the patient presents to the office today via secure tele-med platform Doxy for fu anxiety, depression, insomnia, schizoaffective disorder the patient reports she is doing well on all her medications, does not feel a dose increase is necessary at this time the medications help with her mood significantly patient denies any suicidal ideation at this time she feels safe with herself and others will fu within the next 3 to 6 months to discuss her mood the patient has no other concerns today and will fu as needed for any other concerns she may have VIRIDIANA VYAS [address] [place], [address], [facility] 06/05/2020 10:12:26 4 text/html ROS as noted in the HPI clinical affidavit for guardianship for [facility] The patient is participating in this appointment via telemedicine communication with a phone call/video calling service (Doxy)The patient consents to use of these platforms in place of an in-person appointment due to either sick symptoms the patient is presenting with or current office closure due to COVID exposure in order to keep our office staff and patients safe reviewed patient's clinical information and chartno new medication changes, medications are corrected in chart stable, mood is [id number], responds appropriately to questions when asked with appropriate affect current medications work well for patient symptom management denies falls, broken bones, accidents denies any new changes in her health informationher Healthcare Proxy and Emergency Contact is her daughter Juani Powers she is due for a mammogram but will let me know when she would like me to put in an order, currently working on getting her dental work complete (getting a root canal) and has a fu for eye exam before she starts driving again VIRIDIANA VYAS [address] [place], [address], [facility] 05/09/2023 13:51:46 5 text/html ROS as noted in the HPI f/u med check The patient is participating in this appointment via telemedicine communication with a phone call/video calling service (Doxy)The patient consents to use of these platforms in place of an in-person appointment due to either sick symptoms the patient is presenting with or current office closure due to COVID exposure in order to keep our office staff and patients safe schizophrenia: stable on medsno changesmonitored at the [place] where she livesher daughter is her proxy and guardian, info in alert need to change out the multivitamin to a women's, for some reason they are sending her a men's multivitamin, note sent to [facility] program management specialist is sending an updated affidavit to sign offnothing sent yet, daughter confirmed it was faxed, will have HD reach out to them VIRIDIANA VYAS [address] [place], [address], [place] [facility] 04/13/2024 11:45:25 5 text/html ROS as noted in the [facility] hospital d/c the patient was admitted to the hospital for increasingly worsening symptoms of her Schizophreniashe has been having issues taking her medications, either refusing or forgetting to take itthere was discussion about trying an injectable but given the training and staff management required to initiate it, both the staff and pt's daughter (health care proxy and legal guardian) decided not to go forward with it the patient was then admitted to the hospital for medical management and initiation of alt treatment while on physician guidance according to pt's daughter, the started her on an Invega injection (once monthly injection; atypical antipsychotic, active ingredient is paliperidone, and helps balance neurotransmitters via serotonin receptor dopamine blocking) prior to d/c from the facilityshe developed worsening agitation and restlessness half life is between 25 to 49 days and may take up to six months for completely clear from her system however, this is the first and only dose she received, many cleared sooner unsure if patient was tested with oral paliperidone prior to initiation which is recommended to check for tolerance of the medication patient's daughter called the service this weekend, talked to DANETTE who had the restart the seroquel to help combat the side effectspatient's daughter called again on 11/08/24 when I was public relations director to discuss symptoms which had not improved with restarting the seroquel, after discussion with Juani (pt's daughter) it was agreed to start her on ativan 1 mg TID until her appt today, 11/09/24, to avoid bringing the patient to the hospital which would most likely have caused more distress for the patient patient was on the phone call as well via speaker phone and she agreed to this planmost likely the treatment they would have started in the hospital anyways may need to restart all meds with the addition of as needed ativan until a different treatment plan is madewould need to trial an oral medication prior to an injectable form going forward (for longer, her daughter said they did a few days of an oral before the switched) switched out ativan to klonapin, the ativan doesn't last long enoughagitation and restlessness related to the injection VIRIDIANA VYAS [address] [place], [address], [facility] 11/23/2024 12:39:04 5 text/html ROS as noted in the HPI f/u after d/c with keily the patient is doing wellshe is here with one of her daughters (Maddi) the patient reports that she is still having the feeling of akathisiathe patient is still restless and agitated, pacing in the office the patient reports that she doesn't want to be on the injection againthe patient will restart on the propranololthe patient reports that it works well for her, got it from psych the patient has the next dose needs to be today other than she may need to restart the loading dose discussed with Heaven her daughter as well pt in agreement to cont forward with the treatmentwill see if psych has any changes VIRIDIANA VYAS [address] [place], [address], [facility] 12/06/2024 10:15:55 OBGyn Episode No OBEpisode recorded.
--- OUTSIDE RECORDS SUMMARY | 2024-12-22 19:36 | XMS_ITS | Encounter Summary ---
Author Organization [facility] Address [address] [address] Phone Care Team Providers Care Education Program Specialist Name Role Phone Douglas Lee DO Primary Care Provider Douglas Lee DO Unavailable Pcp, Unknown Primary Care Provider Unavailabl e Encounter Details Date Type Department Care Team ([facility] st Contact Info) Description 07/14/2018 Ancillary Orders Virtual Department [address] [place] [address] Douglas Lee DO [address] [place] [address] Visit for screening mammogram Social History Tobacco Use Types Packs/Day Years [...] as of this encounter Visit Diagnoses Diagnosis Visit for screening mammogram documented in this encounter Care Teams Education Program Specialist Relationship Specialty Start Date End Date Douglas Lee DO PCP - General 12/24/16 10/17/24 Pcp, Unknown PCP - General 10/18/24 Douglas Lee DO [address] [place] [address] [email or web address] Insurance Assigned Provider 07/12/1708/18 documented as of this encounter Additional Source Comments The information contained in this document represents components of the legal health record. It is not the complete legal health record.[facility]
--- OUTSIDE RECORDS SUMMARY | 2024-12-22 19:36 | XMS_ITS | Encounter Summary ---
Author Organization [facility] Address [address] [address] Phone Care Team Providers Care Marine Welder Name Role Phone Piocodie Douglas Avalos DO Primary Care Provider [phone] Douglas Lee DO Unavailable Pcp, Unknown Primary Care Provider Unavailabl e Encounter Details Date Type Department Care Team ([facility] st Contact Info) Description 07/14/2018 Transcribe Orders Virtual Department 30 [place] [address] Douglas Lee DO [address] [facility] [place] [address] Osteopenia, unspecified location (Primary Dx) Social History Tobacco Use Types Packs/Day Years [...] as of this encounter Visit Diagnoses Diagnosis Osteopenia, unspecified location- Primary documented in this encounter Care Teams Marine Welder Relationship Specialty Start Date End Date Douglas Lee DO PCP - General 12/24/16 10/17/24 Pcp, Unknown PCP - General 10/18/24 Douglas Lee DO [address] [place] [address] [email or web address] Insurance Assigned Provider 07/12/1708/18 documented as of this encounter Additional Source Comments The information contained in this document represents components of the legal health record. It is not the complete legal health record.[facility]
--- OUTSIDE RECORDS SUMMARY | 2024-12-22 19:36 | XMS_ITS | Encounter Summary ---
Author Organization [facility] Address [address] [facility] [address] [place] [address] Phone Care Team Providers Care Bridge Saw Operator Name Role Phone Douglas Lee DO Primary Care Provider [phone] Douglas Lee DO Unavailable Pcp, Unknown Primary Care Provider Unavailabl e Encounter Details Date Type Department Care Team ([facility] st Contact Info) Description 07/14/2018 Transcribe Orders Virtual Department 30 [place] [address] Douglas Lee DO [address] [place] [address] [email or web address] Social History Tobacco Use Types Packs/Day Years [...] documented as of this encounter Visit Diagnoses Not on filedocumented in this encounter Care Teams Bridge Saw Operator Relationship Specialty Start Date End Date Douglas Lee DO [email or web address] PCP - General 12/24/16 10/17/24 Pcp, Unknown PCP - General 10/18/24 Douglas Lee DO [address] [place] [address] [email or web address] Insurance Assigned Provider 07/12/1708/18 documented as of this encounter Additional Source Comments The information contained in this document represents components of the legal health record. It is not the complete legal health record.[facility]
--- OUTSIDE RECORDS SUMMARY | 2024-12-22 19:37 | XMS_ITS | Encounter Summary ---
Author Organization [facility] Address [address] [facility] [address] [place] [address] Phone Care Team Providers Care Supervisor Agricultural Education Name Role Phone Douglas Lee DO Primary Care Provider [phone] [place], Douglas Avalos DO Unavailable Pcp, Unknown Primary Care Provider Unavailabl e Encounter Details Date Type Department Care Team (Latest Contact Info) Description 06/11/2017 Transcribe Orders [facility] Specimen Processing 30 [place] [address] Mckenna Valladares MD [address] [facility], [address] [place] [address] [email or web address] Chronic kidney disease, unspecified CKD stage (Primary Dx); Anemia, unspecified type; Hypertension, unspecified type Social History Tobacco Use Types Packs/Day Years [...] on file documented as of this encounter Results * Albumin (06/11/2017 8:05 AM EDT) ALBUMIN 4.5 3.9 - 4.8 g/dL [facility] Blood 06/11/2017 8:05 AM EDT 06/11/2017 10:18 AM EDT us Mckenna Valladares MD LAB BLOOD ORDERABLES Final Re sult Performing Organization Address City/[facility]/ZIP Co de Phone Number [address] [address] * Phosphorus (06/11/2017 8:05 AM EDT) PHOSPHORUS 3.2 2.7 - 4.5 mg/dL [facility] Blood 06/11/2017 8:05 AM EDT 06/11/2017 10:18 AM EDT us Mckenna Valladares MD LAB BLOOD ORDERABLES Final Re sult Performing Organization Address [facility]/ZIP Co de Phone Number [address] [address] * Magnesium (06/11/2017 8:05 AM EDT) MAGNESIUM 2.1 1.6 - 2.6 mg/dL [facility] Blood 06/11/2017 8:05 AM EDT 06/11/2017 10:18 AM EDT us Mckenna Valladares MD LAB BLOOD ORDERABLES Final Re sult Performing Organization Address [facility]/ZIP Co de Phone Number [address] [address] * Parathyroid hormone (PTH) (06/11/2017 8:05 AM EDT) PARATHYROID HORMONE 30 15 - 65 pg/mL [facility] Blood 06/11/2017 8:05 AM EDT 06/11/2017 10:19 AM EDT us Mckenna Valladares MD LAB BLOOD ORDERABLES Final Re sult Performing Organization Address [facility]/ZIP Co de Phone Number [address] [address] * (ABNORMAL) Basic metabolic panel (06/11/2017 8:05 AM EDT) SODIUM 139 133 - 146 mmol/L [facility] CHLORIDE 101 96 - 108 mmol/L [facility] POTASSIUM 4.5 3.3 - 5.1 mmol/L [facility] CO2 24 21 - 35 mmol/L [facility] BUN 18 6 - 19 mg/dL [facility] CREATININE 1.50 0.5 - 1.5 mg/dL [facility] GLUCOSE 85 70 - 99 mg/dL [facility] CALCIUM 9.6 8.4 - 10.3 mg/dL [facility] EGFR 37(L) >59 mL/min/1.7 3m2 [facility] Comment:If patient is black, multiply result by 1.159. The eGFR calculation has changed from the MDRD equation to the CKD-EPI equation as of May 13, 2017. ANION GAP 19 10 - 20 mmol/L [facility] Blood 06/11/2017 8:05 AM EDT 06/11/2017 10:18 AM EDT us Mckenna Valladares MD LAB BLOOD ORDERABLES Final Re sult [facility] [address] [place], [place] [id number] * (ABNORMAL) CBC and differential (06/11/2017 8:05 AM EDT) WBC 4.31 3.40 - 11.20 K/uL [facility] RBC 4.20 3.80 - 4.80 M/uL [facility] HGB 12.1 12.0 - 15.0 g/dL [facility] HCT 35.5(L) 36.0 - 46.0 % [facility] PLT 270 130 - 400 K/uL [facility] MCV 84.5 79.0 - 98.0 fL [facility] MCH 28.8 27.0 - 34.8 pg [facility] MCHC 34.1 31.5 - 36.0 g/dL [facility] RDW 13.4 10.8 - 14.6 % [facility] MPV 9.8 9.4 - 12.4 [facility] NRBC 0.00 /100 WBCs [facility] ABSOLUTE NRBC 0.00 K/uL [facility] DIFF METHOD Auto [facility] NEUTS 50.0 45.30 - 77.70 % [facility] LYMPHS 39.2 12.30 - 39.70 % [facility] MONOS 6.7 4.10 - 12.80 % [facility] EOS 2.3 0 - 7.2 % [facility] BASOS 1.6 0 - 2.80 % [facility] Granulocytes, immature (%) 0.2 0.0 - 0.9 % [facility] ABSOLUTE NEUTS 2.15 1.40 - 7.70 K/uL [facility] ABSOLUTE LYMPHS 1.69 0.60 - 3.20 K/uL [facility] ABSOLUTE MONOS 0.29 0.11 - 0.59 K/uL [facility] ABSOLUTE EOS 0.10 0.01 - 0.50 K/uL [facility] ABSOLUTE BASOS 0.07 0.00 - 0.08 K/uL [facility] Granulocytes, immature 0.01 0.00 - 0.05 K/uL [facility] Blood 06/11/2017 8:05 AM EDT 06/11/2017 10:18 AM EDT Mckenna Valladares MD LAB BLOOD ORDERABLES Final Re sult [address] [address] * Urine protein/creatinine with ratio (06/11/2017 8:00 AM EDT) URINE TOTAL PROTEIN 14.9 mg/dL [facility] URINE CREATININE 83 mg/dL [facility] URINE TP CRE RATIO 0.18 0 - 0.19 [facility] Urine (Urine) 06/11/2017 8:0 0 AM EDT 06/11/2017 10:17 AM EDT us Mckenna Valladares MD URINE ORDERABLES Final Result [address] [address] * (ABNORMAL) Urinalysis (06/11/2017 8:00 AM EDT) COLOR Yellow Yellow [facility] CLARITY HAZY [facility] GLUCOSE Negative Negative [facility] BILI Negative Negative [facility] KETONES Negative Negative [facility] SPECIFIC GRAVITY 1.010 1.005 - 1.030 [facility] BLOOD Negative Negative [facility] PH 6.0 5.0 - 8.0 [facility] Protein-UA Negative Negative [facility] NITRITE Positive(A) Negative [facility] Leukocyte esterase, ur 3+(A) Negative [facility] Urine (Urine) 06/11/2017 8:0 0 AM EDT 06/11/2017 10:14 AM EDT us Mckenna Valladares MD URINE ORDERABLES Final Result Performing Organization Address City/State/[facility] Co de Phone Number [facility] [address] [place] [address] documented in this encounter Visit Diagnoses Diagnosis Chronic kidney disease, unspecified CKD stage- Primary Anemia, unspecified type Hypertension, unspecified type documented in this encounter Care Teams Supervisor Agricultural Education Relationship Specialty Start Date End Date Douglas Lee DO [email or web address] PCP - General 12/24/16 10/17/24 Pcp, Unknown PCP - General 10/18/24 Douglas Lee DO [address] [place] [id number] [email or web address] Insurance Assigned Provider 07/12/1708/18 documented as of this encounter Additional Source Comments The information contained in this document represents components of the legal health record. It is not the complete legal health record.[facility]
--- OUTSIDE RECORDS SUMMARY | 2024-12-22 19:37 | XMS_ITS | Clinical Summary ---
Author Organization [facility] Address [address] [facility] [address] [place] [address] Phone Care Team Providers Care Middle School Librarian Name Role Phone Pcp, Unknown Primary Care Provider Unavailabl e Allergies No known active allergies Medications QUEtiapine (SEROQUEL) 200 MG tablet Take 200 mg by mouth 2 (two) times a day. Active omega-3 fatty acids (FISH OIL CONCENTRATE) 1,000 mg Cap Take 1 capsule by mouth as needed. Active FLUoxetine (PROZAC) 20 MG capsule Take 20 mg by mouth daily. Active Lactobacillus acidophilus Cap as directed Orally QD Active multivitamin per tablet as directed Orally QD Active acetaminophen (TYLENOL) 325 mg tablet Take 650 mg by mouth 3 (three) times a day as needed. Active docusate (COLACE) 100 mg tablet Take 100 mg by mouth 2 (two) times a day as needed for mild constipation. Active ibuprofen (ADVIL,MOTRIN) 800 MG tablet Take 800 mg by mouth every 8 (eight) hours as needed for pain (specific location in comments). Active polyethylene glycol (MIRALAX) 17 gram packet Take 17 g by mouth daily as needed for mild constipation. Active QUEtiapine (SEROQUEL) 25 MG tablet Take 25 mg by mouth 4 (four) times a day as needed (anxiety, agitation). Active LORazepam (ATIVAN) 1 MG tablet Take 1 mg by mouth 3 (three) times a day as needed for anxiety. Active propranoloL (INDERAL) 10 MG immediate release tablet Take 20 mg by mouth 3 (three) times a day as needed (anxiety). Active QUEtiapine (SEROQUEL) 50 MG tablet Take 50 mg by mouth nightly at bedtime. 5 Active cloNIDine HCL (CATAPRES) 0.1 MG tablet Take 0.1 mg by mouth daily as needed (RLS and anxiety). Active INVEGA SUSTENNA 117 mg/0.75 mL Syrg IM injection syringe Inject 117 mg into the muscle every 30 (thirty) days. Active clonazePAM (KLONOPIN) 1 MG tablet Take 1 mg by mouth 3 (three) times a day as needed for anxiety. Active Active Problems Problem Noted Date Diagnosed Date Suicidal ideation 10/18/2024 Encounters Date Type Department Care Team Description 12/21/2024 12:20 PM EDT - 12/22/2024 5:50 PM EDT Hospital Encounter [facility] Emergency [address] [place] [address] Leo Rivera MD Daul, Adrian D, MD Kanter, Carolyn R, MD Morse, Peter, MD Discharge Disposition: Another Health Care Institution Not Defined 10/18/2024 3:10 PM EDT - 10/19/2024 3:30 PM EDT Emergency [facility] Emergency [address] [place] [address] Oz Balbuena MD Kanter, Carolyn R, MD Cooper, Ann, DO Noone, Leo Hanna MD Discharge Disposition: Psychiatric Hospital from Last 3 Months Social History Tobacco Use Types Packs/Day Years [...] Orientation Straight 12/21/2024 12 :04 PM EDT Last Filed Vital Signs Vital Sign Reading [...] Mass Index 27.46 12/21/2024 12:08 PM EDT Plan of Treatment Health Maintenance Due Date Last Done Comments Adult Td,Tdap Booster 1956 LIPID PANEL 1956 DEPRESSION SCREENING 1968 SMOKING Hx and SMOKELESS TOBACCO SCREENING 1969 HEPATITIS C SCREENING 1974 PNEUMOCOCCAL VACCINES (50+ years) (1 of 2 - PCV) 1975 MAMMOGRAM 1996 COLOGUARD 2001 FIT TEST 2001 FOBT 2001 SIGMOIDOSCOPY 2001 VIRTUAL COLONOSCOPY 2001 ZOSTER VACCINES (1 of 2) 2006 OSTEOPOROSIS SCREENING INITIAL (ONE-TIME) 2021 COLONOSCOPY 06/19/2023 06/18/2013 COLORECTAL CANCER SCREENING 06/19/2023 INFLUENZA VACCINE (#1) 2024 9, 12/30/2017, 01/02/2017, Additional history exists COVID-19 VACCINE ( season) 2024 04/21/2020, 03/31/2020 SCREENING FOR DIABETES 12/22/2027 12/21/2024 RSV VACCINE (1 - 1-dose 75+ series) 2031 HEPATITIS A VACCINES Aged Out No long er eligible based on patient's age to complete this topic HIB VACCINES Aged Out No longer eligi ble based on patient's age to complete this topic MENINGOCOCCAL VACCINES (ACWY) Aged Out No longer eligible based on patient's age to complete this topic MENINGOCOCCAL VACCINES (B) Aged Out N o longer eligible based on patient's age to complete this topic Medical Devices Not on file Procedures Procedure Name Priority Date/Time Associated Diagnosis Comments TOXICOLOGY SCREEN, URINE STAT 12/21/2024 1:43 PM EDT ETHANOL, BLOOD STAT 12/21/2024 12:25 PM EDT LFTS (HEPATIC PANEL) STAT 12/21/2024 12:25 PM EDT BASIC METABOLIC PANEL STAT 12/21/2024 12:25 PM EDT CBC AND DIFFERENTIAL STAT 12/21/2024 12:25 PM EDT SALICYLATES STAT 10/18/2024 5:02 PM EDT ACETAMINOPHEN LEVEL STAT 10/18/2024 5 :02 PM EDT ETHANOL, BLOOD STAT 10/18/2024 5:02 PM EDT LFTS (HEPATIC PANEL) STAT 10/18/2024 5:02 PM EDT BASIC METABOLIC PANEL STAT 10/18/2024 5:02 PM EDT CBC AND DIFFERENTIAL STAT 10/18/2024 5:02 PM EDT TOXICOLOGY SCREEN, URINE STAT 10/18/2024 3:53 PM EDT from Last 3 Months Results * (ABNORMAL) Toxicology screen, urine (12/21/2024 1:43 PM EDT) Only the most recent of2 resultswithin the time period is included. URINE CANNABINOIDS NONE DETECTED NONE DETECTED [facility] Comment:Cutoff: 50 ng/mL URINE COCAINE METAB NONE DETECTED NONE DETECTED [facility] Comment:Cutoff: 300 ng/mL URINE AMPHETAMINES NONE DETECTED NONE DETECTED [facility] Comment:Cutoff: 1000 ng/mL URINE METHADONE NONE DETECTED NONE DETECTED [facility] Comment:Cutoff: 300 ng/mL URINE OPIATES NONE DETECTED NONE DETECTED [facility] Comment:Cutoff: 300 ng/mL URINE PHENCYCLIDINE NONE DETECTED NONE DETECTED [facility] Comment:Cutoff: 25 ng/mL URINE OXYCODONE NONE DETECTED NONE DETECTED [facility] Comment:Cutoff: 300 ng/mL URINE BARBITURATES NONE DETECTED NONE DETECTED [facility] Comment:Cutoff: 200 ng/mL URINE BENZODIAZEPINE Positive(A) NONE DETECTED [facility] Comment:Cutoff: 200 ng/mL URINE BUPRENORPHINE NONE DETECTED NONE DETECTED [facility] Comment:Cutoff: 5 ng/mL Fentanyl, urine NONE DETECTED NONE DETECTED [facility] Comment: Cutoff: 5 ng/mL INTERPRETATION FOR TOXICOLOGY PANEL: These results are unconfirmed and should be used for Medical Treatment purposes only. Urine (Urine) 12/21/2024 1:4 3 PM EDT 12/21/2024 1:57 PM EDT Aaron Galvan MD, MBA URINE ORDERABLES Final Result Performing Organization Address City/[facility]/ZIP Co de Phone Number [address] [address] * Ethanol, blood (12/21/2024 12:25 PM EDT) Only the most recent of2 resultswithin the time period is included. ETHANOL <10 <10 mg/dL [facility] Blood 12/21/2024 12:2 5 PM EDT 12/21/2024 12:31 PM EDT Aaron Galvan MD, MBA LAB BLOOD ORDERABLES Fi nal Result Performing Organization Address City/[facility]/ZIP Co de Phone Number [address] [address] * LFTs (hepatic panel) (12/21/2024 12:25 PM EDT) Only the most recent of2 resultswithin the time period is included. ALKALINE PHOSPHATASE 69 39 - 117 U/L [facility] TOTAL BILIRUBIN 0.4 0.0 - 1.2 mg/dL [facility] DIRECT BILIRUBIN 0.2 0.0 - 0.2 mg/dL [facility] Bilirubin (Indirect) 0.2 0 - 1.5 mg/dL [facility] AST 20 0 - 37 U/L [facility] ALT 18 0 - 40 U/L [facility] TOTAL PROTEIN 6.9 6.5 - 8.0 g/dL [facility] ALBUMIN 4.2 3.9 - 4.8 g/dL [facility] GLOBULIN 2.7 1 - 4.8 g/dL [facility] A/G Ratio 1.56 1.00 - 4.80 RATIO [facility] Blood 12/21/2024 12:2 5 PM EDT 12/21/2024 12:31 PM EDT Aaron Galvan MD, MATTI LAB BLOOD ORDERABLES Fi nal Result [facility] [address] [place] [address] * CBC and differential (12/21/2024 12:25 PM EDT) Only the most recent of2 resultswithin the time period is included. WBC 6.13 4.00 - 11.00 K/uL [facility] RBC 4.69 4.00 - 5.20 M/uL [facility] HGB 13.2 12.0 - 16.0 g/dL [facility] HCT 39.2 36.0 - 46.0 % [facility] PLT 260 150 - 450 K/uL [facility] MCV 83.6 80.0 - 100.0 fL [facility] MCH 28.1 27.0 - 31.0 pg [facility] MCHC 33.7 32.0 - 36.0 g/dL [facility] RDW 13.1 11.5 - 14.5 % [facility] MPV 8.7 8.4 - 12.0 fL [facility] NRBC 0.00 0.00 /100 WBCs [facility] ABSOLUTE NRBC 0.00 0.00 K/uL [facility] DIFF METHOD Auto [facility] NEUTS 66.6 48.0 - 76.0 % [facility] LYMPHS 22.7 18.0 - 41.0 % [facility] MONOS 7.2 4.0 - 11.0 % [facility] EOS 2.1 0.0 - 5.0 % [facility] BASOS 1.1 0.0 - 1.5 % [facility] Granulocytes, immature (%) 0.3 0.0 - 0.9 % [facility] ABSOLUTE NEUTS 4.08 1.92 - 7.60 K/uL [facility] ABSOLUTE LYMPHS 1.39 0.72 - 4.10 K/uL [facility] ABSOLUTE MONOS 0.44 0.16 - 1.10 K/uL [facility] ABSOLUTE EOS 0.13 0.00 - 0.50 K/uL [facility] ABSOLUTE BASOS 0.07 0.00 - 0.15 K/uL [facility] Granulocytes, immature 0.02 0.00 - 0.09 K/uL [facility] Blood 12/21/2024 12:2 5 PM EDT 12/21/2024 12:31 PM EDT Aaron Galvan MD, MBA LAB BLOOD ORDERABLES Fi nal Result Performing Organization Address City/[facility]/ZIP Co de Phone Number [address] [address] * (ABNORMAL) Basic metabolic panel (12/21/2024 12:25 PM EDT) Only the most recent of2 resultswithin the time period is included. SODIUM 136 133 - 146 mmol/L [facility] CHLORIDE 103 96 - 108 mmol/L [facility] POTASSIUM 4.4 3.3 - 5.1 mmol/L [facility] CO2 22 21 - 35 mmol/L [facility] BUN 18 6 - 19 mg/dL [facility] CREATININE 1.00 0.5 - 1.5 mg/dL [facility] GLUCOSE 100(H) 70 - 99 mg/dL [facility] CALCIUM 9.3 8.4 - 10.3 mg/dL [facility] EGFR 61 >59 mL/min/1.7 3m2 [facility] Comment:Estimated glomerular filtration rate calculated using the CKD-EPI refit equation. ANION GAP 15 10 - 20 mmol/L [facility] Blood 12/21/2024 12:2 5 PM EDT 12/21/2024 12:31 PM EDT Aaron Galvan MD, MBA LAB BLOOD ORDERABLES Fi nal Result Performing Organization Address City/[facility]/ZIP Co de Phone Number [address] [address] * (ABNORMAL) Acetaminophen level (10/18/2024 5:02 PM EDT) ACETAMINOPHEN <5.0(L) 15.0 - 30.0 ug/mL [facility] Blood 10/18/2024 5:02 PM EDT 10/18/2024 5:03 PM EDT Oz Balbuena MD LAB BLOOD ORDERABLES Fin al Result Performing Organization Address City/[facility]/ZIP Co de Phone Number [address] [address] * (ABNORMAL) Salicylates (10/18/2024 5:02 PM EDT) SALICYLATES <0.3(L) 2.8 - 19.9 mg/dL [facility] Blood 10/18/2024 5:02 PM EDT 10/18/2024 5:03 PM EDT Oz Balbuena MD LAB BLOOD ORDERABLES Fin al Result Performing Organization Address [facility]/RUST de Phone Number [address] [address] from Last 3 Months Insurance [place] [id number] [facility] MEDICARE PART A & [place] B [facility] MEDICARE PART A & [place] [facility] & [facility] Advance Directives For more information, please contact: [phone] (9AM - 5PM [facility], Friday-Friday) Documents on File Type Date Recorded Patient Scrap Bunch Maker Expl anation Legal Guardianship 10/20/2024 2:48 PM Gran joy Legal Guardianship 10/20/2024 8:56 AM Limi tation of Orders Healthcare Proxy 10/20/2024 8:44 AM Care Teams [employer] Librarian Relationship Specialty Start Date End Date Pcp, Unknown PCP - General 10/18/24 Additional Source Comments The information contained in this document represents components of the legal health record. It is not the complete legal health record.[facility]
--- OUTSIDE RECORDS SUMMARY | 2024-12-22 19:37 | XMS_ITS | Encounter Summary ---
Author Organization [facility] Address [address] [facility] [address] [place] [id number] Phone Care Team Providers Care Insurance Application Investigator Name Role Phone Piocodie Douglas Bailey Primary Care Provider [phone] Jesus Douglas Avalos DO Unavailable Pcp, Unknown Primary Care Provider Unavailabl e Encounter Details Date Type Department Care Team ([facility] st Contact Info) Description 01/29/2017 Transcribe Orders [facility] [address] [place] [address] Douglas Lee, DO [address] [place] [address] [place] [address] Depression, unspecified depression type (Primary Dx) Social History Tobacco Use Types [...] Procedure Name Priority Date/Time Associated Diagnosis Comments TOTAL PROTEIN CREATININE RATIO, RANDOM URINE Routine 01/29/2017 7:42 AM EST Depression, unspecified depression type CBC AND DIFFERENTIAL Routine 01/29/2017 6:10 AM EST Depression, unspecified depression type BASIC METABOLIC PANEL Routine 01/29/2017 6:10 AM EST Depression, unspecified depression type documented in this encounter Results * Total protein creatinine ratio, random urine (01/29/2017 7:42 AM EST) URINE TOTAL PROTEIN 4.2 mg/dL [facility] URINE CREATININE 44 mg/dL [facility] URINE TP CRE RATIO 0.10 0 - 0.19 [facility] Urine (Urine) 01/29/2017 7:4 2 AM EST 01/29/2017 8:12 AM EST us Douglas A Bigda DO URINE ORDERABLES Final Result [address] [address] * (ABNORMAL) CBC and differential (01/29/2017 6:10 AM EST) WBC 4.52 3.40 - 11.20 K/uL [facility] RBC 3.96 3.80 - 4.80 M/uL [facility] HGB 11.3(L) 12.0 - 15.0 g/dL [facility] HCT 33.8(L) 36.0 - 46.0 % [facility] PLT 227 130 - 400 K/uL [facility] MCV 85.4 79.0 - 98.0 fL [facility] MCH 28.5 27.0 - 34.8 pg [facility] MCHC 33.4 31.5 - 36.0 g/dL [facility] RDW 13.3 10.8 - 14.6 % [facility] MPV 10.1 9.4 - 12.4 [facility] NRBC 0.00 /100 WBCs [facility] ABSOLUTE NRBC 0.00 K/uL [facility] DIFF METHOD Auto [facility] NEUTS 53.4 45.30 - 77.70 % [facility] LYMPHS 33.8 12.30 - 39.70 % [facility] MONOS 8.0 4.10 - 12.80 % [facility] EOS 2.9 0 - 7.2 % [facility] BASOS 1.5 0 - 2.80 % [facility] Granulocytes, immature (%) 0.4 0.0 - 0.9 % [facility] ABSOLUTE NEUTS 2.41 1.40 - 7.70 K/uL [facility] ABSOLUTE LYMPHS 1.53 0.60 - 3.20 K/uL [facility] ABSOLUTE MONOS 0.36 0.11 - 0.59 K/uL [facility] ABSOLUTE EOS 0.13 0.01 - 0.50 K/uL [facility] ABSOLUTE BASOS 0.07 0.00 - 0.08 K/uL [facility] Granulocytes, immature 0.02 0.00 - 0.05 K/uL [facility] Blood 01/29/2017 6:10 AM EST 01/29/2017 8:11 AM EST us Douglas A BigRecombine DO LAB BLOOD ORDERABLES Final Resul t Performing Organization Address City/[facility] Co de Phone Number [address] [address] * (ABNORMAL) Basic metabolic panel (01/29/2017 6:10 AM EST) SODIUM 144 133 - 146 mmol/L [facility] CHLORIDE 105 96 - 108 mmol/L [facility] POTASSIUM 4.9 3.3 - 5.1 mmol/L [facility] CO2 28 21 - 35 mmol/L [facility] BUN 25(H) 6 - 19 mg/dL [facility] CREATININE 1.40 0.5 - 1.5 mg/dL [facility] GLUCOSE 84 70 - 99 mg/dL [facility] CALCIUM 9.3 8.4 - 10.3 mg/dL [facility] EGFR 38(L) >60 mL/min/1.7 3m2 [facility] Comment:Abnormal if <60. If patient is -Filipino, multiply the result by 1.21. ANION GAP 16 10 - 20 mmol/L [facility] Blood 01/29/2017 6:10 AM EST 01/29/2017 8:11 AM EST us Douglas A Bigda DO LAB BLOOD ORDERABLES Final Resul t [facility] [address] [place] [address] documented in this encounter Visit Diagnoses Diagnosis Depression, unspecified depression type- Primary documented in this encounter Care Teams Insurance Application Investigator Relationship Specialty Start Date End Date Douglas Lee DO PCP - General 12/24/16 10/17/24 Pcp, Unknown PCP - General 10/18/24 Douglas Lee DO [address] [place] [id number] Insurance Assigned Provider 07/12/1708/18 documented as of this encounter Additional Source Comments The information contained in this document represents components of the legal health record. It is not the complete legal health record.[facility]
[2024-12-22 20:00] VITALS: BP 138/90; PULSE 95; RESP 18; TEMP 36.4; O2SAT 97
--- NOTE | 2024-12-23 01:35 | PC.ADMIT ---
Ilsa is a 69 y/o female admitted from [facility] at 1840 on a CV with a dx of Schizoaffective Disorder, Bipolar Type. Pt came into their facility for akathisia. She reports feeling jittery/shaky and wanting to crawl out of her skin, believing this came from a bad reaction to Invega injection. She received her first shot in November, and her second was given on 12/13/24. Patient was receiving this injection due to suspicion of cheeking her medications. Patient has a current Chip's Order, and also a legal guardian-her daughter Juani. Pt reported that she wanted to choke herself, swallow batteries, and would rather be . Per her daughter, patient has had multiple suicide attempts including drinking antifreeze. Ilsa currently resides at the [facility] in [place], [place] where she receives her medications by staff. Patient reports that her PCP has been prescribing her these and was working to have an intake with [facility] to obtain a psychiatrist. Patient has had multiple inpatient hospitalizations, most recently 10/2024 at [facility]. Pt is hopeful and is future and goal oriented, glad that she is here. She is requesting a change in medication dosage of Ativan. Per Ilsa, she was recently given a combination of Ativan, Propanalol, and Benadryl for the side effects and reports that this worked well for her. Pt is calm, relaxed, and compliant. She has NKA and no medical problems.Tox screen positive for only Benzo. She reports smoking cigarettes for the past 25 years Not every day. Maybe a pack a week denies any alcohol abuse or illegal substances. Pt has no concerns with sleep or appetite.. Skin check unremarkable. VSS. Pt placed on 15 minute safety checks.
[2024-12-23 07:45] VITALS: BP 112/56; PULSE 87; RESP 18; TEMP 36.7; O2SAT 96
[2024-12-23 08:00] VITALS: BP 112/56; PULSE 87; RESP 18; TEMP 36.7; O2SAT 96
--- NOTE | 2024-12-23 08:27 | HO.PM.IMCN ---
History of Present Illness Data of Consult Service Date: 12/23/24 Primary Care Provider: Unknown Physician HPI Reason for consult: Medical consult 69-year-old female with schizoaffective disorder bipolar type, akathisia and depression was brought in by ambulance to [facility] ED from [facility] after reporting suicidal ideation. Patient reported that she is going to swallow batteries or choke herself. She has a history of suicidal attempts. Medical workup included an EKG with normal sinus rhythm and no ischemic changes. Metabolic panel with no evidence of kidney or liver injury, no electrolyte imbalances, no leukocytosis or evidence of anemia. On exam she reports that she has occasional trouble walking, feels unsteady on her feet. Uses a walker at the [facility]. OT eval is pending here. Review of Systems Review of Systems: Denies any shortness of breath, chest pain, palpitations, dizziness, lightheadedness, headaches, dysuria, abdominal pain or discomfort, nausea, vomiting or diarrhea. Denies chills, body aches, muscle aches, fatigue or weight loss. Reports occasional leg weakness. [facility] Medical History (Updated 12/23/24 @ 13:15 by Jeanette Mayorga DNP) Suicide ideation Social History Household Members: None Housing: Assisted Living Facility Do you presently have visiting nurse or other home services: Yes Patient Tobacco Use Status: Current someday Tobacco user Tobacco use type: Cigarette Cigarettes Per Day: 3 Years Smoked: 25 years Smoked in Last 30 Days: Yes e-Cigarette/Vaping Use: Former Use Patient Interested in Nicotine Replacement: Yes Patient Given Instructions on How to Stop Smoking: Yes Date Education Initiated: 12/22/24 Second Hand Smoke Exposure: No Currently Displaying Signs/Symptoms of Drug Intoxication Withdrawal: No Have you been hit, kicked, punched, or otherwise hurt by someone within the past year? If so, by whom?: No Do you feel safe in your current relationship?: No Current Relationship Is there a partner from a previous relationship who is making you feel unsafe now?: No Are you made to feel afraid or neglected: No Advance Directives: No Advance Directives Information Provided: No Do you have thoughts of harming others: None Do you have a plan to hurt others: No Plan Recently lost weight without trying: No Eating poorly because of decreased appetite: No Nutrition Risks: No Nutritional Risk Patient : No : No Poor oral hygiene: No Meds Allergies Allergy/AdvReac Type Severity Reaction Status Date / Time No Known Allergies (No Known Allergy Unverified 11/25/19 19:01 Allergies*) Active Medications: Current Medications Acetaminophen (Acetaminophen 325 Mg Tablet) 650 mg PO Q6H PRN PRN Reason: Headache/Pain, Scale 1-10 Al Hydroxide/Mg Hydroxide (Magnesium Hydrox/Alum Hydrox 30 Ml Oral.Susp) 30 ml PO Q6H PRN PRN Reason: Heartburn/Nausea Clonidine HCl (Clonidine Hcl 0.1 Mg Tablet) 0.1 mg PO DAILY [facility]; Protocol Fluoxetine HCl (Fluoxetine Hcl 20 Mg Capsule) 20 mg PO DAILY [facility] Last Admin: 12/22/24 22:24 Dose: Not Given Hydroxyzine HCl (Hydroxyzine Hcl 25 Mg Tablet) 25 mg PO Q6H PRN PRN Reason: mild anxiety Lorazepam (Lorazepam 1 Mg Tablet) 1 mg PO TID PRN PRN Reason: Akathisia Magnesium Hydroxide (Milk Of Magnesia 30 Ml Oral.Susp) 30 ml PO DAILY PRN PRN Reason: Constipation Nicotine (Nicotine 21 Mg Patch.Td24) 21 mg TRANSDERMA DAILY PRN PRN Reason: nicotine craving Nicotine Polacrilex (Nicotine Polacrilex 2 Mg Gum) 2 mg BUCCAL Q2H PRN PRN Reason: Nicotine Cravings Olanzapine (Olanzapine 5 Mg Tablet) 5 mg PO BID PRN PRN Reason: agitation Propranolol HCl (Propranolol Hcl 20 Mg Tablet) 20 mg PO TID [facility]; Protocol Quetiapine Fumarate (Quetiapine Fumarate 200 Mg Tablet) 200 mg PO BID [facility] Last Admin: 12/22/24 22:23 Dose: 200 mg Trazodone HCl (Trazodone Hcl 50 Mg Tablet) 50 mg PO BEDTIME MRX1 PRN PRN Reason: Insomnia Home Medications ?Medication ?Instructions ?Recorded ?Confirmed ?Last Taken ?Type clonazepam 1 mg tablet 1 mg PO TID PRN Anxiety 12/22/24 12/22/24 Unknown History clonidine HCl 0.1 mg tablet 0.1 mg PO DAILY 12/22/24 12/22/24 Unknown History fluoxetine 20 mg capsule 20 mg PO QAM 12/22/24 12/22/24 12/22/24 09:08 History lorazepam 1 mg tablet 1 mg PO TID PRN Akathisia 12/22/24 12/22/24 12/22/24 13:49 History propranolol 10 mg tablet 20 mg PO TID 12/22/24 12/22/24 12/22/24 09:09 History quetiapine 200 mg tablet 200 mg PO BID 12/22/24 12/22/24 12/21/24 20:09 History quetiapine 50 mg tablet 50 mg PO BEDTIME 12/22/24 12/22/24 Unknown History Physical Exam Vital Signs and Narrative: Vital Signs: Last Vital Signs Temp 98.0 F 12/23/24 08:00 Pulse 87 12/23/24 08:00 Resp 18 12/23/24 08:00 BP 112/56 L 12/23/24 08:00 Pulse Ox 96 12/23/24 08:00 O2 Del Method Room Air 12/23/24 08:00 CONST: Alert and oriented, in NAD. Well nourished HEENT: Normocephalic, atraumatic, MMM, Eyes clear, Neck supple RESP: Lungs clear, RRR even and regular HEART:,RRR, S1, S2. No edema GI:Abdomen Soft NT, ND. + BS times four :Deferred SKIN: Warm dry and intact, no visible lesions or rashes NEURO:CN II-XII Intact bilaterally, Sensation intact. Speech clear. Ambulating with a slow steady gait PSYCH: Normal affect Results Labs 12/23/24 09:04 Assessment and Plan (1) Suicide ideation: Status: Acute Plan 69-year-old female with a past medical history listed below who presented to the ED with suicide ideation. Schizoaffective disorder bipolar type/Akathisia/Depression Treatment per psychiatric team ERIN lu for use of walker. Thank you for allowing me to participate in the care of this patient. Will follow with you, please notify medical provider with any changes in condition or concerns.
[2024-12-23 09:58] LABS: Alanine Aminotransferase 24 U/L (0-31); Albumin Level 4.4 g/dL (3.5-5.0); Alkaline Phosphatase 63 U/L (39-117); Anion Gap 14 (12-20); Aspartate Amino Transferase 28 U/L (5-31); Blood Urea Nitrogen 21 mg/dL (9-16); Calcium 9.4 mg/dL (8.4-10.2); Carbon Dioxide 24 mmol/L (22-29); Chloride 106 mmol/L (96-108); Cholesterol 203 mg/dL (<200); Estimated Glomerular Filt Rate 53; HDL Cholesterol 62 mg/dL (>40); Potassium 4.6 mmol/L (3.3-5.1); Sodium 139 mmol/L (135-145); Total Protein 6.9 g/dL (6.5-8.0); Triglycerides 89 mg/dL (<150)
[2024-12-23 10:13] LABS: Free T4 (Free Thyroxine) 1.16 ng/dL (0.71-1.85); Thyroid Stimulating Hormone 1.55 uIU/mL (0.32-4.0)
[2024-12-23 10:21] LABS: Vitamin B12 499 pg/mL (200-900)
--- NOTE | 2024-12-23 14:02 | HO.PSYCHPN ---
Subjective Subjective Date of Service: 12/23/24 Reason For Visit: F25.0 Subjective Notes: Conditional Voluntary Interim History: paranoia lou yrs ago---not sleeping- 1st red flag, yuongest was 5 y/o ---1st pshych admission Menopause -threw for a loop, destabilized I try not to be dep' bc i have kids and 4 grnkids. went off prozac and seroquel dep'd w/ the shot, having to come here. son lent her a car but took back since she didn't use it no SI since other day at [facility] w/ akathisia over the roof dtr works at [facility] [employer] [facility] [employer] -most recent prior to that- 8 yrs ago ~7 admissions h/o SA-- last one- drank transmission fluid 8-9 yrs ago, o/d prior to that no h/o violence no recent etoh drank socially in the past vaped tobacco and quit, didn't smoke qd. declines NRT in case it exacerbates akathisia sleeping well generally eating well Guardian: Juani -- [phone] Diagnostics Vital Signs (24Hr): Vital Signs - 24 hr 12/22/24 20:00 12/23/24 07:45 12/23/24 08:00 Temperature 97.6 F 98.0 F 98.0 F Pulse Rate 95 87 87 Respiratory Rate 18 18 18 Blood Pressure 138/90 H 112/56 L 112/56 L Pulse Oximetry 97 96 96 Oxygen Delivery Method Room Air Room Air Room Air Labs 12/23/24 09:04 Labs: Laboratory Results - last 48 hr 12/23/24 09:04 Sodium 139 Potassium 4.6 Chloride 106 Carbon Dioxide 24 Anion Gap 14 BUN 21 H Creatinine 1.04 Estim Creat Clear Calc TNP Estimated GFR 53 Random Glucose 164 H Estimat Average Glucose 117 Hemoglobin A1c % 5.7 Calcium 9.4 Total Bilirubin 0.6 AST 28 ALT 24 Alkaline Phosphatase 63 Total Protein 6.9 Albumin 4.4 Triglycerides 89 Cholesterol 203 H LDL Cholesterol, Calc 124 H HDL Cholesterol 62 Vitamin B12 499 TSH 1.55 Free T4 1.16 Medications Medications Current Medications Acetaminophen (Acetaminophen 325 Mg Tablet) 650 mg PO Q6H PRN PRN Reason: Headache/Pain, Scale 1-10 Al Hydroxide/Mg Hydroxide (Magnesium Hydrox/Alum Hydrox 30 Ml Oral.Susp) 30 ml PO Q6H PRN PRN Reason: Heartburn/Nausea Clonidine HCl (Clonidine Hcl 0.1 Mg Tablet) 0.1 mg PO DAILY [facility]; Protocol Last Admin: 12/23/24 08:32 Dose: 0.1 mg Fluoxetine HCl (Fluoxetine Hcl 20 Mg Capsule) 20 mg PO DAILY [facility] Last Admin: 12/23/24 08:32 Dose: 20 mg Hydroxyzine HCl (Hydroxyzine Hcl 25 Mg Tablet) 25 mg PO Q6H PRN PRN Reason: mild anxiety Lorazepam (Lorazepam 1 Mg Tablet) 1 mg PO TID PRN PRN Reason: Akathisia Last Admin: 12/23/24 08:38 Dose: 1 mg Magnesium Hydroxide (Milk Of Magnesia 30 Ml Oral.Susp) 30 ml PO DAILY PRN PRN Reason: Constipation Nicotine (Nicotine 21 Mg Patch.Td24) 21 mg TRANSDERMA DAILY PRN PRN Reason: nicotine craving Nicotine Polacrilex (Nicotine Polacrilex 2 Mg Gum) 2 mg BUCCAL Q2H PRN PRN Reason: Nicotine Cravings Olanzapine (Olanzapine 5 Mg Tablet) 5 mg PO BID PRN PRN Reason: agitation Propranolol HCl (Propranolol Hcl 20 Mg Tablet) 20 mg PO TID [facility]; Protocol Last Admin: 12/23/24 08:33 Dose: 20 mg Quetiapine Fumarate (Quetiapine Fumarate 200 Mg Tablet) 200 mg PO BID [facility] Last Admin: 12/23/24 08:33 Dose: Not Given Trazodone HCl (Trazodone Hcl 50 Mg Tablet) 50 mg PO BEDTIME MRX1 PRN PRN Reason: Insomnia Allergies Allergies Allergy/AdvReac Type Severity Reaction Status Date / Time No Known Allergies (No Known Allergy Unverified 11/25/19 19:01 Allergies*) Assessment & Plan Assessment & Plan (1) Suicide ideation: Status: Acute Code(s): R45.851 - Suicidal ideations Plan 69-year-old female with a past medical history listed below who presented to the ED with suicide ideation. Schizoaffective disorder bipolar type/Akathisia/Depression Treatment per psychiatric team OT tabitha for use of walker. Thank you for allowing me to participate in the care of this patient. Will follow with you, please notify medical provider with any changes in condition or concerns. Time Spent With Patient Time: Total time managing care of this patient today ____ minutes.
[2024-12-23 14:23] VITALS: BP 112/61; PULSE 87
--- NOTE | 2024-12-23 19:05 | HO.PSYADMNOT ---
HPI Date of Service: 12/23/24 Chief Complaint: F25.0 Sources of Information: patient interviewed, chart reviewed and crisis/core team assessment reviewed HPI Subjective Notes: Conditional Voluntary Narrative: Ms. Powers is a 69 yo F with h/o schizoaffective disorder bipolar type who was brought to [facility] by ambulance from [facility] after she endorsed SI to choke herself in the setting of severe akathisia. She was transferred to [facility] inpatient psychiatric unit for tx of depression and SI. Pt reports that she had been stable on Seroquel 400 mg qd x 8 yrs but quit taking it in June 2024 since something felt off . The packaging and taste were different and she didn't feel right. She also stopped taking her Prozac around that time. She felt fine but she reports that her family knew that something was off. She re-started her meds after she was off of them x 6 wks. Per [facility] assessment, pt's dtr reported that pt was cheeking her medications and they therefore discussed an RODRIGUEZ. Pt was started on oral Invega and then received her first two shots of Invega Sustenna in Nov. Pt reports that the Invega Sustenna (caused extreme akathisia, characterized by extreme restlessness,, feeling like she's crawling out of her skin, pacing. She's experienced leg stiffness and difficulty walking. She experienced depression and SI in the setting of these sx. She was started on propranolol and lorazepam, which have reduced the akathisia significantly. Psychiatric ROS- Denies current sx of psychosis. Endorses h/o paranoia, denies h/o hallucinations Denies recent manic episodes Endorses low energy Sleeping okay Poor concentration Stable appetite Denies violent ideation Past Psychiatric History: Recently had an intake at [facility] PCP has been prescribing her psychotropic meds Pt has had ~7 inpatient psychiatric admissions. Her first hospitalization occurred when her youngest was 4y/o. Most recent admission was at [facility] in Oct 2024. h/o multiple suicide attempts, including drinking antifreeze and overdosing on medications Prior Med Trials: Pt reports that she's tried many psychiatric meds but can't recall them all Risperidone, Abilify (felt wired), Geodon (bad dreams) Wellbutrin Medical Evaluation Reviewed: Yes [facility] Medical History (Updated 12/23/24 @ 19:33 by Lorena Gagnon MD) Suicide ideation Family History: none reported Social History: Pt has two daughters and 1 son, who are all in the . They are all supportive. One of dtrs is a psychiatric nurse who works at the [employer] in [place]. Pt lives in a rest home alone. Substance History: Pt denies Trauma History: Denies Diagnostics Vital Signs (24Hr): Vital Signs - 24 hr 12/22/24 20:00 12/23/24 07:45 12/23/24 08:00 Temperature 97.6 F 98.0 F 98.0 F Pulse Rate 95 87 87 Respiratory Rate 18 18 18 Blood Pressure 138/90 H 112/56 L 112/56 L Pulse Oximetry 97 96 96 Oxygen Delivery Method Room Air Room Air Room Air 12/23/24 14:23 Temperature Pulse Rate 87 Respiratory Rate Blood Pressure 112/61 Pulse Oximetry Oxygen Delivery Method Labs 12/23/24 09:04 Labs: Laboratory Results - last 48 hr 12/23/24 09:04 Sodium 139 Potassium 4.6 Chloride 106 Carbon Dioxide 24 Anion Gap 14 BUN 21 H Creatinine 1.04 Estim Creat Clear Calc TNP Estimated GFR 53 Random Glucose 164 H Estimat Average Glucose 117 Hemoglobin A1c % 5.7 Calcium 9.4 Total Bilirubin 0.6 AST 28 ALT 24 Alkaline Phosphatase 63 Total Protein 6.9 Albumin 4.4 Triglycerides 89 Cholesterol 203 H LDL Cholesterol, Calc 124 H HDL Cholesterol 62 Vitamin B12 499 TSH 1.55 Free T4 1.16 Meds/Allergies Meds Home Medications ?Medication ?Instructions ?Recorded ?Confirmed ?Type clonazepam 1 mg tablet 1 mg PO TID PRN Anxiety 12/22/24 12/22/24 History clonidine HCl 0.1 mg tablet 0.1 mg PO DAILY 12/22/24 12/22/24 History fluoxetine 20 mg capsule 20 mg PO QAM 12/22/24 12/22/24 History lorazepam 1 mg tablet 1 mg PO TID PRN Akathisia 12/22/24 12/22/24 History propranolol 10 mg tablet 20 mg PO TID 12/22/24 12/22/24 History quetiapine 200 mg tablet 200 mg PO BID 12/22/24 12/22/24 History quetiapine 50 mg tablet 50 mg PO BEDTIME 12/22/24 12/22/24 History Narrative: Pt was taking clonazepam 1 mg tid prior to recent [facility] ED admission. Switched to lorazepam 1 mg tid prn for anxiety Allergies Allergies Allergy/AdvReac Type Severity Reaction Status Date / Time No Known Allergies (No Known Allergy Unverified 11/25/19 19:01 Allergies*) Mental Status Exam Mental Status Exam Narrative: Appearance: Casually dressed. Grooming/hygiene wnl. Good eye contact Attitude:Cooperative Speech: Fluent and wnl in regard to volume, tone, prosody Motor activity: Calm, able to remain seated for duration of interview. No tics or tremors. Slow shuffling gait Mood: as noted above Affect: appropriate, reactive, brightens up appropriately Thought process: goal directed and without evidence of formal thought disorder Thought content: as noted above. Denies current SI. Feels hopeful to have relief from the akathisia sx Perception: Denies AH/VH and does not appear to respond to internal stimuli Alert/oriented in all spheres Cognition grossly intact Insight: intact Judgment: intact Assessment & Plan Assessment & Plan (1) Schizoaffective disorder, bipolar type: Status: Acute Code(s): F25.0 - Schizoaffective disorder, bipolar type (2) Akathisia: Status: Acute Code(s): G25.71 - Drug induced akathisia (3) Suicide ideation: Status: Acute Code(s): R45.851 - Suicidal ideations Plan Ms. Powers is a 69 yo F with h/o schizoaffective disorder bipolar type who was brought to [facility] by ambulance from [facility] after she endorsed SI to choke herself in the setting of severe akathisia. She was transferred to [facility] inpatient psychiatric unit for tx of depression and SI. Pt is feeling better since she was started on lorazepam and propranolol for the akathisia. She does not want to have another Invega injection since it caused the akathisia. She endorses some dizziness and wonders if it's due to being on the Seroquel and Invega. She denies current sx of psychosis and her thought process is clear. She is agreeable w/plan to taper the Seroquel from current dose of 200 mg qhs to 100 mg qhs for now. Plan: Admitted to for safety and stabilization Legal status: CV 15 min safety checks labs, EKG and admission medical consult reviewed reviewed OT eval ordered by hospitalist Standard safety checks Milieu therapy Meds- -Need to clarify when last dose of Invega Sustenna 117 mg was given. Pt doesn't want to take it again regardless -Decrease Seroquel to 100 mg qhs for now (from most recent home dose of 200 mg qhs). Pt would like to titrate it back up to 400 mg as the Invega wears off -Seroquel 50 mg bid prn for agitation -Continue lorazepam 1 mg tid prn for akathisia -Continue fluoxetine 20 mg qam -Continue clonidine 0.1 mg qd (for restlessness and anxiety) -Continue propranolol 20 mg tid for akathisia/anxiety Patient educated on: diagnosis, medication risk/benefits and medical condition Informed Consent: understands Reason for continued inpatient stay Substantial Risk for: harm to self and med/psych decompensation Statement Statement: I have reviewed the history and physical and performed a pertinent examination on my patient. No changes have occurred unless specified. If the History and Physical was not performed prior to admission, the Hospitalist's service will be consulted for completing the admission physical. Time Spent With Patient Time: Total time managing care of this patient today __90__ minutes.
[2024-12-23 20:15] VITALS: BP 102/58; PULSE 67; RESP 16; TEMP 36.2; O2SAT 99
[2024-12-24 08:42] VITALS: BP 131/60; PULSE 72; RESP 14; TEMP 36.9; O2SAT 96
--- NOTE | 2024-12-24 11:28 | HO.PSYCHPN ---
Subjective Subjective Date of Service: 12/24/24 Reason For Visit: SI, akathisia Guardianship: Yes (Daughter Juani- [phone]) Interim History: Chart reviewed, case discussed with tx team SW spoke w/ pt's dtr Juani today who is pt's guardian. Per JEIMY, Juani reported that pt has a long h/o med noncompliance and began having SI and made suicidal threats when she most recently d/c'd her meds. Pt has a [facility] order but the Invega Sustjatin isn't on the order yet. Juani believes that her mom is experiencing some of the med SE that she's reported but the symptoms that she endorses (s/a difficulty walking) are more pronounced when other people are around. Pt reportedly got angry with juani recently and demanded more Ativan. Pt tells t/w that her mood is so-so. She reports that she took 2 ativan earlier today, which helped w/ swaying and anxiety. Endorses dizziness, eyes feeling 'wonky', feeling tired, brain fog, and feeling a little restless but states that the akathisia sx have improved significantly overall. Denies any issues w/ the seroquel taper last night from 200 mg to 100 mg Pt denies SI Denies AH/VH Reports sleeping thru the night Medication Compliance: Yes Mental Status Exam Mental Status Exam Narrative: Appearance: Casually dressed. Grooming/hygiene wnl. Good eye contact Attitude: Cooperative Speech: Fluent and wnl in regard to volume, tone, prosody Motor activity: Calm, able to remain seated for duration of interview. No tics or tremors. Slow but steady gait Mood: as noted above Affect: appropriate, reactive Thought process: goal directed and without evidence of formal thought disorder Thought content: as noted above. Perception: Denies AH/VH and does not appear to respond to internal stimuli Alert/oriented in all spheres Cognition grossly intact Insight: fair Judgment: fair Diagnostics Vital Signs (24Hr): Vital Signs - 24 hr 12/23/24 14:23 12/23/24 20:15 12/24/24 08:42 Temperature 97.1 F 98.5 F Pulse Rate 87 67 72 Respiratory Rate 16 14 Blood Pressure 112/61 102/58 L 131/60 Pulse Oximetry 99 96 Oxygen Delivery Method Room Air Room Air Labs 12/23/24 09:04 Labs: Laboratory Results - last 48 hr 12/23/24 09:04 Sodium 139 Potassium 4.6 Chloride 106 Carbon Dioxide 24 Anion Gap 14 BUN 21 H Creatinine 1.04 Estim Creat Clear Calc TNP Estimated GFR 53 Random Glucose 164 H Estimat Average Glucose 117 Hemoglobin A1c % 5.7 Calcium 9.4 Total Bilirubin 0.6 AST 28 ALT 24 Alkaline Phosphatase 63 Total Protein 6.9 Albumin 4.4 Triglycerides 89 Cholesterol 203 H LDL Cholesterol, Calc 124 H HDL Cholesterol 62 Vitamin B12 499 TSH 1.55 Free T4 1.16 Medications Medications Current Medications Acetaminophen (Acetaminophen 325 Mg Tablet) 650 mg PO Q6H PRN PRN Reason: Headache/Pain, Scale 1-10 Al Hydroxide/Mg Hydroxide (Magnesium Hydrox/Alum Hydrox 30 Ml Oral.Susp) 30 ml PO Q6H PRN PRN Reason: Heartburn/Nausea Clonidine HCl (Clonidine Hcl 0.1 Mg Tablet) 0.1 mg PO DAILY [facility]; Protocol Last Admin: 12/24/24 08:45 Dose: 0.1 mg Fluoxetine HCl (Fluoxetine Hcl 20 Mg Capsule) 20 mg PO DAILY [facility] Last Admin: 12/24/24 08:45 Dose: 20 mg Hydroxyzine HCl (Hydroxyzine Hcl 25 Mg Tablet) 25 mg PO Q6H PRN PRN Reason: mild anxiety Lorazepam (Lorazepam 1 Mg Tablet) 1 mg PO TID PRN PRN Reason: Akathisia Last Admin: 12/24/24 08:49 Dose: 1 mg Magnesium Hydroxide (Milk Of Magnesia 30 Ml Oral.Susp) 30 ml PO DAILY PRN PRN Reason: Constipation Nicotine (Nicotine 21 Mg Patch.Td24) 21 mg TRANSDERMA DAILY PRN PRN Reason: nicotine craving Nicotine Polacrilex (Nicotine Polacrilex 2 Mg Gum) 2 mg BUCCAL Q2H PRN PRN Reason: Nicotine Cravings Propranolol HCl (Propranolol Hcl 20 Mg Tablet) 20 mg PO TID [facility]; Protocol Last Admin: 12/24/24 08:45 Dose: 20 mg Quetiapine Fumarate (Quetiapine Fumarate 100 Mg Tablet) 100 mg PO BEDTIME [facility] Last Admin: 12/23/24 20:30 Dose: 100 mg Quetiapine Fumarate (Quetiapine Fumarate 50 Mg Tablet) 50 mg PO BID PRN PRN Reason: agitation Trazodone HCl (Trazodone Hcl 50 Mg Tablet) 50 mg PO BEDTIME MRX1 PRN PRN Reason: Insomnia Allergies Allergies Allergy/AdvReac Type Severity Reaction Status Date / Time No Known Allergies (No Known Allergy Unverified 11/25/19 19:01 Allergies*) Assessment & Plan Assessment & Plan (1) Schizoaffective disorder, bipolar type: Status: Acute Code(s): F25.0 - Schizoaffective disorder, bipolar type (2) Akathisia: Status: Acute Code(s): G25.71 - Drug induced akathisia (3) Suicide ideation: Status: Acute Code(s): R45.851 - Suicidal ideations Plan Ms. Powers is a 69 yo F with h/o schizoaffective disorder bipolar type who was brought to [facility] by ambulance from [facility] after she endorsed SI to choke herself in the setting of severe akathisia. She was transferred to [facility] inpatient psychiatric unit for tx of depression and SI. Pt is feeling better since she was started on lorazepam and propranolol for the akathisia. She does not want to have another Invega injection since it caused the akathisia. She endorses some dizziness and wonders if it's due to being on the Seroquel and Invega. She denies current sx of psychosis and her thought process is clear. She is agreeable w/plan to taper the Seroquel from current dose of 200 mg qhs to 100 mg qhs for now. Plan: Admitted to for safety and stabilization Legal status: CV 15 min safety checks labs, EKG and admission medical consult reviewed reviewed OT eval ordered by hospitalist Standard safety checks Milieu therapy Meds- -Need to clarify when last dose of Invega Sustenna 117 mg was given. Pt doesn't want to take it again regardless -Decrease Seroquel to 100 mg qhs for now (from most recent home dose of 200 mg qhs). Pt would like to titrate it back up to 400 mg as the Invega wears off -Seroquel 50 mg bid prn for agitation -Continue lorazepam 1 mg tid prn for akathisia -Continue fluoxetine 20 mg qam -Continue clonidine 0.1 mg qd (for restlessness and anxiety) -Continue propranolol 20 mg tid for akathisia/anxiety 12/24: Per collateral information obtained by SW from pt's daughter/guardian, pt has had a long h/o med non-adherence and she feels that pt has at embellished her physical sx, including her gait, since she doesn't want to take an RODRIGUEZ. Will continue current med regimen/tx plan for now. T/W will call pt's dtr on Friday to discuss her tx plan Patient educated on: medication risk/benefits Informed Consent: understands Reason for continued inpatient stay Substantial Risk for: med/psych decompensation Time Spent With Patient Time: Total time managing care of this patient today 30_ minutes.
[2024-12-24 16:44] VITALS: BP 134/67; PULSE 71
[2024-12-24 20:00] VITALS: BP 119/57; PULSE 65; RESP 16; TEMP 36.2; O2SAT 100
[2024-12-25 07:37] VITALS: BP 118/63; PULSE 70; RESP 18; TEMP 36.5; O2SAT 97
--- NOTE | 2024-12-25 10:07 | HO.PSYCHPN ---
Subjective Subjective Date of Service: 12/25/24 Reason For Visit: SI, akathisia Interim History: Patient seen. Reports feeling anxious. Medications are well tolerated. Sleep is good. She denies AVH. Eating is good. Out in the milieu but says it's boring over the weekend. Getting along with roommate and they play cards. Pt denies SI. Denies AH/VH Reports sleeping thru the night Review of Systems Review of Systems occasional dizziness stiff legs/unsteady gait-- improved w/ akathisia tx Mental Status Exam Mental Status Exam Narrative: Appearance: Casually dressed. Grooming/hygiene wnl. Good eye contact Attitude: Cooperative Speech: Fluent and wnl in regard to volume, tone, prosody Motor activity: Calm, able to remain seated for duration of interview. No tics or tremors. Slow but steady gait Mood: as noted above Affect: appropriate, reactive Thought process: goal directed and without evidence of formal thought disorder Thought content: as noted above. Perception: Denies AH/VH and does not appear to respond to internal stimuli Alert/oriented in all spheres Cognition grossly intact Insight: fair Judgment: fair Diagnostics Vital Signs (24Hr): Vital Signs - 24 hr 12/24/24 16:44 12/24/24 20:00 12/25/24 07:37 Temperature 97.2 F 97.7 F Pulse Rate 71 65 70 Respiratory Rate 16 18 Blood Pressure 134/67 119/57 L 118/63 Pulse Oximetry 100 97 Oxygen Delivery Method Room Air Room Air Labs 12/23/24 09:04 Labs: Laboratory Results - last 48 hr 12/23/24 09:04 Estimat Average Glucose 117 Hemoglobin A1c % 5.7 Vitamin B12 499 TSH 1.55 Free T4 1.16 Medications Medications Current Medications Acetaminophen (Acetaminophen 325 Mg Tablet) 650 mg PO Q6H PRN PRN Reason: Headache/Pain, Scale 1-10 Al Hydroxide/Mg Hydroxide (Magnesium Hydrox/Alum Hydrox 30 Ml Oral.Susp) 30 ml PO Q6H PRN PRN Reason: Heartburn/Nausea Clonidine HCl (Clonidine Hcl 0.1 Mg Tablet) 0.1 mg PO DAILY [facility]; Protocol Last Admin: 12/25/24 08:26 Dose: 0.1 mg Fluoxetine HCl (Fluoxetine Hcl 20 Mg Capsule) 20 mg PO DAILY [facility] Last Admin: 12/25/24 08:25 Dose: 20 mg Hydroxyzine HCl (Hydroxyzine Hcl 25 Mg Tablet) 25 mg PO Q6H PRN PRN Reason: mild anxiety Lorazepam (Lorazepam 1 Mg Tablet) 1 mg PO TID PRN PRN Reason: Akathisia Last Admin: 12/25/24 08:24 Dose: 1 mg Magnesium Hydroxide (Milk Of Magnesia 30 Ml Oral.Susp) 30 ml PO DAILY PRN PRN Reason: Constipation Nicotine (Nicotine 21 Mg Patch.Td24) 21 mg TRANSDERMA DAILY PRN PRN Reason: nicotine craving Nicotine Polacrilex (Nicotine Polacrilex 2 Mg Gum) 2 mg BUCCAL Q2H PRN PRN Reason: Nicotine Cravings Propranolol HCl (Propranolol Hcl 20 Mg Tablet) 20 mg PO TID [facility]; Protocol Last Admin: 12/25/24 08:26 Dose: 20 mg Quetiapine Fumarate (Quetiapine Fumarate 100 Mg Tablet) 100 mg PO BEDTIME [facility] Last Admin: 12/24/24 20:15 Dose: 100 mg Quetiapine Fumarate (Quetiapine Fumarate 50 Mg Tablet) 50 mg PO BID PRN PRN Reason: agitation Trazodone HCl (Trazodone Hcl 50 Mg Tablet) 50 mg PO BEDTIME MRX1 PRN PRN Reason: Insomnia Allergies Allergies Allergy/AdvReac Type Severity Reaction Status Date / Time No Known Allergies (No Known Allergy Unverified 11/25/19 19:01 Allergies*) Assessment & Plan Assessment & Plan (1) Schizoaffective disorder, bipolar type: Status: Acute Code(s): F25.0 - Schizoaffective disorder, bipolar type (2) Akathisia: Status: Acute Code(s): G25.71 - Drug induced akathisia (3) Suicide ideation: Status: Acute Code(s): R45.851 - Suicidal ideations Plan Ms. Powers is a 69 yo F with h/o schizoaffective disorder bipolar type who was brought to [facility] by ambulance from [facility] after she endorsed SI to choke herself in the setting of severe akathisia. She was transferred to [facility] inpatient psychiatric unit for tx of depression and SI. Pt is feeling better since she was started on lorazepam and propranolol for the akathisia. She does not want to have another Invega injection since it caused the akathisia. She endorses some dizziness and wonders if it's due to being on the Seroquel and Invega. She denies current sx of psychosis and her thought process is clear. She is agreeable w/plan to taper the Seroquel from current dose of 200 mg qhs to 100 mg qhs for now. Plan: Admitted to [facility] for safety and stabilization Legal status: CV 15 min safety checks labs, EKG and admission medical consult reviewed reviewed OT eval ordered by hospitalist Standard safety checks Milieu therapy Meds- -Need to clarify when last dose of Invega Sustenna 117 mg was given. Pt doesn't want to take it again regardless -Decrease Seroquel to 100 mg qhs for now (from most recent home dose of 200 mg qhs). Pt would like to titrate it back up to 400 mg as the Invega wears off -Seroquel 50 mg bid prn for agitation -Continue lorazepam 1 mg tid prn for akathisia -Continue fluoxetine 20 mg qam -Continue clonidine 0.1 mg qd (for restlessness and anxiety) -Continue propranolol 20 mg tid for akathisia/anxiety 12/24: Per collateral information obtained by JEIMY from pt's daughter/guardian, pt has had a long h/o med non-adherence and she feels that pt has at embellished her physical sx, including her gait, since she doesn't want to take an RODRIGUEZ. Will continue current med regimen/tx plan for now. T/W will call pt's dtr on Friday to discuss her tx plan 12/25: continue current management and treatment plan. Reason for continued inpatient stay Substantial Risk for: harm to self and rapid decompensation Time Spent With Patient Time: Total time managing care of this patient today ____ minutes.
[2024-12-25 15:30] VITALS: BP 127/59; PULSE 72
[2024-12-25 20:00] VITALS: BP 103/51; PULSE 66; RESP 17; TEMP 36.5; O2SAT 96
[2024-12-26 08:00] VITALS: BP 135/84; PULSE 70; RESP 16; TEMP 36.2; O2SAT 96
[2024-12-26 08:48] VITALS: BP 135/84; PULSE 70
--- NOTE | 2024-12-26 09:37 | HO.PSYCHPN ---
Subjective Subjective Date of Service: 12/26/24 Reason For Visit: SI, akathisia Interim History: Feeling more anxious today. Not sure why. She took Propranolol, Hydroxyzine and Ativan today for anxiety. Also says she is having akathisia. Seen in the milieu engaged in board game with roommate and RN. Pleasant, anxious, cooperative. Review of Systems Review of Systems occasional dizziness stiff legs/unsteady gait-- improved w/ akathisia tx Mental Status Exam Mental Status Exam Narrative: Appearance: Casually dressed. Grooming/hygiene wnl. Good eye contact Attitude: Cooperative Speech: Fluent and wnl in regard to volume, tone, prosody Motor activity: Calm, able to remain seated for duration of interview. No tics or tremors. Slow but steady gait Mood: as noted above Affect: appropriate, reactive Thought process: goal directed and without evidence of formal thought disorder Thought content: as noted above. Perception: Denies AH/VH and does not appear to respond to internal stimuli Alert/oriented in all spheres Cognition grossly intact Insight: fair Judgment: fair Diagnostics Vital Signs (24Hr): Vital Signs - 24 hr 12/25/24 15:30 12/25/24 20:00 12/26/24 08:00 Temperature 97.7 F 97.2 F Pulse Rate 72 66 70 Respiratory Rate 17 16 Blood Pressure 127/59 L 103/51 L 135/84 Pulse Oximetry 96 96 Oxygen Delivery Method Room Air Room Air 12/26/24 08:48 12/26/24 08:48 Temperature Pulse Rate 70 Respiratory Rate Blood Pressure 135/84 135/84 Pulse Oximetry Oxygen Delivery Method Labs 12/23/24 09:04 Medications Medications Current Medications Acetaminophen (Acetaminophen 325 Mg Tablet) 650 mg PO Q6H PRN PRN Reason: Headache/Pain, Scale 1-10 Last Admin: 12/25/24 18:51 Dose: 650 mg Al Hydroxide/Mg Hydroxide (Magnesium Hydrox/Alum Hydrox 30 Ml Oral.Susp) 30 ml PO Q6H PRN PRN Reason: Heartburn/Nausea Clonidine HCl (Clonidine Hcl 0.1 Mg Tablet) 0.1 mg PO DAILY HERNAN; Protocol Last Admin: 12/26/24 08:48 Dose: 0.1 mg Fluoxetine HCl (Fluoxetine Hcl 20 Mg Capsule) 20 mg PO DAILY [facility] Last Admin: 12/26/24 08:48 Dose: 20 mg Hydroxyzine HCl (Hydroxyzine Hcl 25 Mg Tablet) 25 mg PO Q6H PRN PRN Reason: mild anxiety Last Admin: 12/25/24 20:10 Dose: 25 mg Lorazepam (Lorazepam 1 Mg Tablet) 1 mg PO TID PRN PRN Reason: Akathisia Last Admin: 12/26/24 07:06 Dose: 1 mg Magnesium Hydroxide (Milk Of Magnesia 30 Ml Oral.Susp) 30 ml PO DAILY PRN PRN Reason: Constipation Nicotine (Nicotine 21 Mg Patch.Td24) 21 mg TRANSDERMA DAILY PRN PRN Reason: nicotine craving Nicotine Polacrilex (Nicotine Polacrilex 2 Mg Gum) 2 mg BUCCAL Q2H PRN PRN Reason: Nicotine Cravings Propranolol HCl (Propranolol Hcl 20 Mg Tablet) 20 mg PO TID HERNAN; Protocol Last Admin: 12/26/24 08:48 Dose: 20 mg Quetiapine Fumarate (Quetiapine Fumarate 100 Mg Tablet) 100 mg PO BEDTIME HERNAN Last Admin: 12/25/24 20:04 Dose: 100 mg Quetiapine Fumarate (Quetiapine Fumarate 50 Mg Tablet) 50 mg PO BID PRN PRN Reason: agitation Trazodone HCl (Trazodone Hcl 50 Mg Tablet) 50 mg PO BEDTIME MRX1 PRN PRN Reason: Insomnia Allergies Allergies Allergy/AdvReac Type Severity Reaction Status Date / Time No Known Allergies (No Known Allergy Unverified 11/25/19 19:01 Allergies*) Assessment & Plan Assessment & Plan (1) Schizoaffective disorder, bipolar type: Status: Acute Code(s): F25.0 - Schizoaffective disorder, bipolar type (2) Akathisia: Status: Acute Code(s): G25.71 - Drug induced akathisia (3) Suicide ideation: Status: Acute Code(s): R45.851 - Suicidal ideations Plan Ms. Powers is a 69 yo F with h/o schizoaffective disorder bipolar type who was brought to [facility] by ambulance from [facility] after she endorsed SI to choke herself in the setting of severe akathisia. She was transferred to [facility] M3 inpatient psychiatric unit for tx of depression and SI. Pt is feeling better since she was started on lorazepam and propranolol for the akathisia. She does not want to have another Invega injection since it caused the akathisia. She endorses some dizziness and wonders if it's due to being on the Seroquel and Invega. She denies current sx of psychosis and her thought process is clear. She is agreeable w/plan to taper the Seroquel from current dose of 200 mg qhs to 100 mg qhs for now. Plan: Admitted to M3 for safety and stabilization Legal status: CV 15 min safety checks labs, EKG and admission medical consult reviewed reviewed OT eval ordered by hospitalist Standard safety checks Milieu therapy Meds- -Need to clarify when last dose of Invega Sustenna 117 mg was given. Pt doesn't want to take it again regardless -Decrease Seroquel to 100 mg qhs for now (from most recent home dose of 200 mg qhs). Pt would like to titrate it back up to 400 mg as the Invega wears off -Seroquel 50 mg bid prn for agitation -Continue lorazepam 1 mg tid prn for akathisia -Continue fluoxetine 20 mg qam -Continue clonidine 0.1 mg qd (for restlessness and anxiety) -Continue propranolol 20 mg tid for akathisia/anxiety 12/24: Per collateral information obtained by SW from pt's daughter/guardian, pt has had a long h/o med non-adherence and she feels that pt has at embellished her physical sx, including her gait, since she doesn't want to take an RODRIGUEZ. Will continue current med regimen/tx plan for now. T/W will call pt's dtr on Friday to discuss her tx plan 12/25: continue current management and treatment plan. 12/26: Continue current management and treatment plan. Reason for continued inpatient stay Substantial Risk for: harm to self, inability to function and rapid decompensation Time Spent With Patient Time: Total time managing care of this patient today ____ minutes.
[2024-12-26 14:59] VITALS: BP 117/72; PULSE 68
[2024-12-26 19:40] VITALS: BP 132/66; PULSE 76; RESP 14; TEMP 36.2; O2SAT 97
[2024-12-27 08:45] VITALS: BP 125/59; PULSE 64; RESP 14; TEMP 36.2; O2SAT 97
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
[2024-12-27 15:25] VITALS: BP 125/60; PULSE 83
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
[2024-12-27 20:00] VITALS: BP 100/51; PULSE 76; RESP 16; TEMP 36.6; O2SAT 96
[2024-12-27 20:23] VITALS: BP 100/51; PULSE 76
[2024-12-28 07:56] VITALS: BP 131/72; PULSE 69; RESP 16; TEMP 36.2; O2SAT 97
[2024-12-28 15:14] VITALS: BP 136/74; PULSE 79; O2SAT 95
--- NOTE | 2024-12-28 18:33 | P.PNPSI_ITS ---
Subjective Subjective Date of Service: 12/28/24 Reason For Visit: SI, akathisia Interim History: chart reviewed, case discussed in team Met w/ pt in her room. She reports feelng 'a little tired and a little depressed, raphael antsy . Had poor sleep last night due to her roommate's restlessness. Asks to increase the Seroquel to 200 mg tonight. She took prn Seroquel today and took a nap. She endorses restlessness and being bothered by 'my akathisia but sat calmly throughout the interview. She did not endorse issues w/ her gait today Denies SI Denies parnaoia, AHVH Medication Compliance: Yes Mental Status Exam Mental Status Exam Narrative: Appearance: Casually dressed. Grooming/hygiene wnl. Good eye contact Attitude: Cooperative Speech: Fluent and wnl in regard to volume, tone, prosody Motor activity: Calm. No evidence of restlessness. No tics, tremors or dyskinesias. Gait is steady Mood: as noted above Affect: appropriate, reactive Thought process: generally goal directed Thought content: as noted above. Perception: Denies AH/VH and does not appear to respond to internal stimuli Alert/oriented in all spheres Cognition grossly intact Insight: fair Judgment: fair Diagnostics Vital Signs (24Hr): Vital Signs - 24 hr 12/27/24 20:00 12/27/24 20:23 12/28/24 07:56 Temperature 97.9 F 97.2 F Pulse Rate 76 76 69 Respiratory Rate 16 16 Blood Pressure 100/51 L 100/51 L 131/72 Pulse Oximetry 96 97 Oxygen Delivery Method Room Air Room Air 12/28/24 15:14 Temperature Pulse Rate 79 Respiratory Rate Blood Pressure 136/74 Pulse Oximetry 95 Oxygen Delivery Method Room Air Labs 12/23/24 09:04 Medications Medications Current Medications Acetaminophen (Acetaminophen 325 Mg Tablet) 650 mg PO Q6H PRN PRN Reason: Headache/Pain, Scale 1-10 Last Admin: 12/28/24 17:58 Dose: 650 mg Al Hydroxide/Mg Hydroxide (Magnesium Hydrox/Alum Hydrox 30 Ml Oral.Susp) 30 ml PO Q6H PRN PRN Reason: Heartburn/Nausea Clonidine HCl (Clonidine Hcl 0.1 Mg Tablet) 0.1 mg PO DAILY [facility]; Protocol Last Admin: 12/28/24 08:34 Dose: 0.1 mg Fluoxetine HCl (Fluoxetine Hcl 20 Mg Capsule) 20 mg PO DAILY [facility] Last Admin: 12/28/24 08:34 Dose: 20 mg Hydroxyzine HCl (Hydroxyzine Hcl 25 Mg Tablet) 25 mg PO Q6H PRN PRN Reason: mild anxiety Last Admin: 12/28/24 11:29 Dose: 25 mg Lorazepam (Lorazepam 1 Mg Tablet) 1 mg PO TID PRN PRN Reason: Akathisia Last Admin: 12/28/24 14:38 Dose: 1 mg Magnesium Hydroxide (Milk Of Magnesia 30 Ml Oral.Susp) 30 ml PO DAILY PRN PRN Reason: Constipation Nicotine (Nicotine 21 Mg Patch.Td24) 21 mg TRANSDERMA DAILY PRN PRN Reason: nicotine craving Nicotine Polacrilex (Nicotine Polacrilex 2 Mg Gum) 2 mg BUCCAL Q2H PRN PRN Reason: Nicotine Cravings Propranolol HCl (Propranolol Hcl 20 Mg Tablet) 20 mg PO TID [facility]; Protocol Last Admin: 12/28/24 15:16 Dose: 20 mg Quetiapine Fumarate (Quetiapine Fumarate 50 Mg Tablet) 50 mg PO BID PRN PRN Reason: agitation Last Admin: 12/28/24 15:38 Dose: 50 mg Quetiapine Fumarate (Quetiapine Fumarate 50 Mg Tablet) 150 mg PO BEDTIME [facility] Last Admin: 12/27/24 20:23 Dose: 150 mg Trazodone HCl (Trazodone Hcl 50 Mg Tablet) 50 mg PO BEDTIME MRX1 PRN PRN Reason: Insomnia Allergies Allergies Allergy/AdvReac Type Severity Reaction Status Date / Time No Known Allergies (No Known Allergy Unverified 11/25/19 19:01 Allergies*) Assessment & Plan Assessment & Plan (1) Schizoaffective disorder, bipolar type: Status: Acute Code(s): F25.0 - Schizoaffective disorder, bipolar type (2) Akathisia: Status: Acute Code(s): G25.71 - Drug induced akathisia (3) Suicide ideation: Status: Acute Code(s): R45.851 - Suicidal ideations Plan Ms. Powers is a 69 yo F with h/o schizoaffective disorder bipolar type who was brought to [facility] by ambulance from [facility] after she endorsed SI to choke herself in the setting of severe akathisia. She was transferred to [facility] M[facility] inpatient psychiatric unit for tx of depression and SI. Pt is feeling better since she was started on lorazepam and propranolol for the akathisia. She does not want to have another Invega injection since it caused the akathisia. She endorses some dizziness and wonders if it's due to being on the Seroquel and Invega. She denies current sx of psychosis and her thought process is clear. She is agreeable w/plan to taper the Seroquel from current dose of 200 mg qhs to 100 mg qhs for now. Plan: Admitted to for safety and stabilization Legal status: CV 15 min safety checks labs, EKG and admission medical consult reviewed reviewed OT eval ordered by hospitalist Standard safety checks Milieu therapy Meds- -Need to clarify when last dose of Invega Sustenna 117 mg was given. Pt doesn't want to take it again regardless -Decrease Seroquel to 100 mg qhs for now (from most recent home dose of 200 mg qhs). Pt would like to titrate it back up to 400 mg as the Invega wears off -Seroquel 50 mg bid prn for agitation -Continue lorazepam 1 mg tid prn for akathisia -Continue fluoxetine 20 mg qam -Continue clonidine 0.1 mg qd (for restlessness and anxiety) -Continue propranolol 20 mg tid for akathisia/anxiety 12/24: Per collateral information obtained by JEIMY from pt's daughter/guardian, pt has had a long h/o med non-adherence and she feels that pt has at embellished her physical sx, including her gait, since she doesn't want to take an RODRIGUEZ. Will continue current med regimen/tx plan for now. T/W will call pt's dtr on Friday to discuss her tx plan 12/25: continue current management and treatment plan. 12/26: Continue current management and treatment plan. 12/27: Will titrate Seroquel to 150 mg tonight. Will f/u with pt's dtr re: pt's wish to titrate the Seroquel back up and take it crushed in applesauce at the facility where staff can observe her taking it, rather than trial another medication. Pt subjectively reports akathisia but sat calmly throughout the interview, acknowledged that the sx she attributed to akathisia might be at least partially related to anxiety 12/28: Will titrate Seroquel to 200 mg tonight. Pt continues to make subjective reports of akathisia but there is no objective evidence today. She has not utilized any prn lorazepam today. Patient educated on: diagnosis, medication risk/benefits and medical condition Informed Consent: understands Reason for continued inpatient stay Substantial Risk for: med/psych decompensation Time Spent With Patient Time: Total time managing care of this patient today _25___ minutes.
[2024-12-28 19:45] VITALS: BP 117/58; PULSE 69; RESP 20; TEMP 36.9; O2SAT 97
[2024-12-29 07:30] VITALS: BP 100/54; PULSE 69; RESP 18; TEMP 36.2; O2SAT 96
[2024-12-29 08:57] VITALS: BP 115/62
[2024-12-29 08:58] VITALS: BP 115/62; PULSE 69
[2024-12-29 15:26] VITALS: BP 113/70; PULSE 67
[2024-12-29] MEDS: Milk of Magnesia 30 ML ORAL.SUSP PO (16:46)
--- NOTE | 2024-12-29 19:37 | HO.PSYCHPN ---
Subjective Subjective Date of Service: 12/29/24 Reason For Visit: SI, akathisia Interim History: Chart reviewed, case discussed with treatment team Pt reports that she's doing 'okay'..somewhat anxious/depressed but denies SI. She's had issues sleeping due to her rooommate's stirring and noise on the unit. She's taking her meds as rx'd. Reports that she's still experiencing the akathisia but it's manageable w/ her meds. Staff have not observed any restlessness or pacing. Mental Status Exam Mental Status Exam Narrative: Appearance: Casually dressed. Grooming/hygiene wnl. Good eye contact Attitude: Cooperative Speech: Fluent and wnl in regard to volume, tone, prosody Motor activity: Calm. No evidence of restlessness. No tics, tremors or dyskinesias. Gait is steady Mood: as noted above Affect: appropriate, reactive Thought process: generally goal directed Thought content: as noted above. Perception: Denies AH/VH and does not appear to respond to internal stimuli Alert/oriented in all spheres Cognition grossly intact Insight: fair Judgment: fair Diagnostics Vital Signs (24Hr): Vital Signs - 24 hr 12/28/24 19:45 12/29/24 07:30 12/29/24 08:57 Temperature 98.4 F 97.2 F Pulse Rate 69 69 Respiratory Rate 20 18 Blood Pressure 117/58 L 100/54 L 115/62 Pulse Oximetry 97 96 Oxygen Delivery Method Room Air Room Air 12/29/24 08:58 12/29/24 15:26 Temperature Pulse Rate 69 67 Respiratory Rate Blood Pressure 115/62 113/70 Pulse Oximetry Oxygen Delivery Method Labs 12/23/24 09:04 Medications Medications Current Medications Acetaminophen (Acetaminophen 325 Mg Tablet) 650 mg PO Q6H PRN PRN Reason: Headache/Pain, Scale 1-10 Last Admin: 12/28/24 17:58 Dose: 650 mg Al Hydroxide/Mg Hydroxide (Magnesium Hydrox/Alum Hydrox 30 Ml Oral.Susp) 30 ml PO Q6H PRN PRN Reason: Heartburn/Nausea Clonidine HCl (Clonidine Hcl 0.1 Mg Tablet) 0.1 mg PO DAILY [facility]; Protocol Last Admin: 12/29/24 08:57 Dose: 0.1 mg Fluoxetine HCl (Fluoxetine Hcl 20 Mg Capsule) 20 mg PO DAILY [facility] Last Admin: 12/29/24 08:57 Dose: 20 mg Hydroxyzine HCl (Hydroxyzine Hcl 25 Mg Tablet) 25 mg PO Q6H PRN PRN Reason: mild anxiety Last Admin: 12/29/24 07:34 Dose: 25 mg Lorazepam (Lorazepam 1 Mg Tablet) 1 mg PO TID PRN PRN Reason: Akathisia Last Admin: 12/29/24 13:42 Dose: 1 mg Magnesium Hydroxide (Milk Of Magnesia 30 Ml Oral.Susp) 30 ml PO DAILY PRN PRN Reason: Constipation Last Admin: 12/29/24 16:46 Dose: 30 ml Nicotine (Nicotine 21 Mg Patch.Td24) 21 mg TRANSDERMA DAILY PRN PRN Reason: nicotine craving Nicotine Polacrilex (Nicotine Polacrilex 2 Mg Gum) 2 mg BUCCAL Q2H PRN PRN Reason: Nicotine Cravings Propranolol HCl (Propranolol Hcl 20 Mg Tablet) 20 mg PO TID [facility]; Protocol Last Admin: 12/29/24 15:26 Dose: 20 mg Quetiapine Fumarate (Quetiapine Fumarate 50 Mg Tablet) 50 mg PO BID PRN PRN Reason: agitation Last Admin: 12/28/24 15:38 Dose: 50 mg Quetiapine Fumarate (Quetiapine Fumarate 200 Mg Tablet) 200 mg PO BEDTIME [facility] Last Admin: 12/28/24 19:58 Dose: 200 mg Trazodone HCl (Trazodone Hcl 50 Mg Tablet) 50 mg PO BEDTIME MRX1 PRN PRN Reason: Insomnia Allergies Allergies Allergy/AdvReac Type Severity Reaction Status Date / Time No Known Allergies (No Known Allergy Unverified 11/25/19 19:01 Allergies*) Assessment & Plan Assessment & Plan (1) Schizoaffective disorder, bipolar type: Status: Acute Code(s): F25.0 - Schizoaffective disorder, bipolar type (2) Akathisia: Status: Acute Code(s): G25.71 - Drug induced akathisia (3) Suicide ideation: Status: Acute Code(s): R45.851 - Suicidal ideations Plan Ms. Powers is a 69 yo F with h/o schizoaffective disorder bipolar type who was brought to [facility] by ambulance from [facility] after she endorsed SI to choke herself in the setting of severe akathisia. She was transferred to [facility] inpatient psychiatric unit for tx of depression and SI. Pt is feeling better since she was started on lorazepam and propranolol for the akathisia. She does not want to have another Invega injection since it caused the akathisia. She endorses some dizziness and wonders if it's due to being on the Seroquel and Invega. She denies current sx of psychosis and her thought process is clear. She is agreeable w/plan to taper the Seroquel from current dose of 200 mg qhs to 100 mg qhs for now. Plan: Admitted to for safety and stabilization Legal status: CV 15 min safety checks labs, EKG and admission medical consult reviewed reviewed OT eval ordered by hospitalist Standard safety checks Milieu therapy Meds- -Need to clarify when last dose of Invega Sustenna 117 mg was given. Pt doesn't want to take it again regardless -Decrease Seroquel to 100 mg qhs for now (from most recent home dose of 200 mg qhs). Pt would like to titrate it back up to 400 mg as the Invega wears off -Seroquel 50 mg bid prn for agitation -Continue lorazepam 1 mg tid prn for akathisia -Continue fluoxetine 20 mg qam -Continue clonidine 0.1 mg qd (for restlessness and anxiety) -Continue propranolol 20 mg tid for akathisia/anxiety 12/24: Per collateral information obtained by JEIMY from pt's daughter/guardian, pt has had a long h/o med non-adherence and she feels that pt has at embellished her physical sx, including her gait, since she doesn't want to take an RODRIGUEZ. Will continue current med regimen/tx plan for now. T/W will call pt's dtr on Friday to discuss her tx plan 12/25: continue current management and treatment plan. 12/26: Continue current management and treatment plan. 12/27: Will titrate Seroquel to 150 mg tonight. Will f/u with pt's dtr re: pt's wish to titrate the Seroquel back up and take it crushed in applesauce at the facility where staff can observe her taking it, rather than trial another medication. Pt subjectively reports akathisia but sat calmly throughout the interview, acknowledged that the sx she attributed to akathisia might be at least partially related to anxiety 12/28: Will titrate Seroquel to 200 mg tonight. Pt continues to make subjective reports of akathisia but there is no objective evidence today. She has not utilized any prn lorazepam today. 12/29: Will continue current med regimen/tx plan today. Patient educated on: diagnosis Informed Consent: understands (generally understands) Reason for continued inpatient stay Substantial Risk for: med/psych decompensation Time Spent With Patient Time: Total time managing care of this patient today _25___ minutes.
[2024-12-29 20:00] VITALS: BP 138/59; PULSE 72; RESP 16; TEMP 36.4; O2SAT 97
[2024-12-30 08:00] VITALS: BP 123/63; PULSE 72; RESP 20; TEMP 36.5; O2SAT 97
[2024-12-30 15:10] VITALS: BP 99/58; PULSE 74
--- NOTE | 2024-12-30 18:42 | HO.PSYCHPN ---
Subjective Subjective Date of Service: 12/30/24 Reason For Visit: SI, akathisia Interim History: Chart reviewed, case discussed in team T/W spoke w/ pt's dtr Juani for care coordination. Juani was accepting of the plan to continue pt on Seroquel, given that she had done well with it for years and tolerates it well. Juani wonders if the pt endorsed SI to make more of a case for discontinuing the RODRIGUEZ. Discussed potential d/c tomorrow after staff from her SNF come to evaluate her. Pt reports that she's 'tired'. Slept better last night but has difficulty sleeping w/ noises on the unit and the safety checks. She feels better overall but states that she still has the akathisia, which is worse in the am. She denies SI. Reports feeling a little depressed. Denies AHVH. Mental Status Exam Mental Status Exam Narrative: Appearance: Casually dressed. Grooming/hygiene wnl. Good eye contact Attitude: Cooperative Speech: Fluent and wnl in regard to volume, tone, prosody Motor activity: Calm. No evidence of restlessness. No tics, tremors or dyskinesias. Gait is steady Mood: as noted above Affect: appropriate, reactive Thought process: generally goal directed Thought content: as noted above. Perception: Denies AH/VH and does not appear to respond to internal stimuli Alert/oriented in all spheres Cognition grossly intact Insight: fair Judgment: fair Diagnostics Vital Signs (24Hr): Vital Signs - 24 hr 12/29/24 20:00 12/30/24 08:00 12/30/24 15:10 Temperature 97.6 F 97.7 F Pulse Rate 72 72 74 Respiratory Rate 16 20 Blood Pressure 138/59 L 123/63 99/58 L Pulse Oximetry 97 97 Oxygen Delivery Method Room Air Room Air Labs 12/23/24 09:04 Medications Medications Current Medications Acetaminophen (Acetaminophen 325 Mg Tablet) 650 mg PO Q6H PRN PRN Reason: Headache/Pain, Scale 1-10 Last Admin: 12/28/24 17:58 Dose: 650 mg Al Hydroxide/Mg Hydroxide (Magnesium Hydrox/Alum Hydrox 30 Ml Oral.Susp) 30 ml PO Q6H PRN PRN Reason: Heartburn/Nausea Clonidine HCl (Clonidine Hcl 0.1 Mg Tablet) 0.1 mg PO DAILY [facility]; Protocol Last Admin: 12/30/24 08:24 Dose: 0.1 mg Fluoxetine HCl (Fluoxetine Hcl 20 Mg Capsule) 20 mg PO DAILY [facility] Last Admin: 12/30/24 08:24 Dose: 20 mg Hydroxyzine HCl (Hydroxyzine Hcl 25 Mg Tablet) 25 mg PO Q6H PRN PRN Reason: mild anxiety Last Admin: 12/29/24 07:34 Dose: 25 mg Lorazepam (Lorazepam 1 Mg Tablet) 1 mg PO TID PRN PRN Reason: Akathisia Last Admin: 12/30/24 16:18 Dose: 1 mg Magnesium Hydroxide (Milk Of Magnesia 30 Ml Oral.Susp) 30 ml PO DAILY PRN PRN Reason: Constipation Last Admin: 12/29/24 16:46 Dose: 30 ml Nicotine (Nicotine 21 Mg Patch.Td24) 21 mg TRANSDERMA DAILY PRN PRN Reason: nicotine craving Nicotine Polacrilex (Nicotine Polacrilex 2 Mg Gum) 2 mg BUCCAL Q2H PRN PRN Reason: Nicotine Cravings Propranolol HCl (Propranolol Hcl 20 Mg Tablet) 20 mg PO TID [facility]; Protocol Last Admin: 12/30/24 15:10 Dose: 20 mg Quetiapine Fumarate (Quetiapine Fumarate 50 Mg Tablet) 50 mg PO BID PRN PRN Reason: agitation Last Admin: 12/28/24 15:38 Dose: 50 mg Quetiapine Fumarate (Quetiapine Fumarate 200 Mg Tablet) 200 mg PO BEDTIME [facility] Last Admin: 12/29/24 20:04 Dose: 200 mg Trazodone HCl (Trazodone Hcl 50 Mg Tablet) 50 mg PO BEDTIME MRX1 PRN PRN Reason: Insomnia Allergies Allergies Allergy/AdvReac Type Severity Reaction Status Date / Time No Known Allergies (No Known Allergy Unverified 11/25/19 19:01 Allergies*) Assessment & Plan Assessment & Plan (1) Schizoaffective disorder, bipolar type: Status: Acute Code(s): F25.0 - Schizoaffective disorder, bipolar type (2) Akathisia: Status: Acute Code(s): G25.71 - Drug induced akathisia (3) Suicide ideation: Status: Acute Code(s): R45.851 - Suicidal ideations Plan Ms. Powers is a 69 yo F with h/o schizoaffective disorder bipolar type who was brought to [facility] by ambulance from [facility] after she endorsed SI to choke herself in the setting of severe akathisia. She was transferred to [facility] inpatient psychiatric unit for tx of depression and SI. Pt is feeling better since she was started on lorazepam and propranolol for the akathisia. She does not want to have another Invega injection since it caused the akathisia. She endorses some dizziness and wonders if it's due to being on the Seroquel and Invega. She denies current sx of psychosis and her thought process is clear. She is agreeable w/plan to taper the Seroquel from current dose of 200 mg qhs to 100 mg qhs for now. Plan: Admitted to for safety and stabilization Legal status: CV 15 min safety checks labs, EKG and admission medical consult reviewed reviewed OT eval ordered by hospitalist Standard safety checks Milieu therapy Meds- -Need to clarify when last dose of Invega Sustenna 117 mg was given. Pt doesn't want to take it again regardless -Decrease Seroquel to 100 mg qhs for now (from most recent home dose of 200 mg qhs). Pt would like to titrate it back up to 400 mg as the Invega wears off -Seroquel 50 mg bid prn for agitation -Continue lorazepam 1 mg tid prn for akathisia -Continue fluoxetine 20 mg qam -Continue clonidine 0.1 mg qd (for restlessness and anxiety) -Continue propranolol 20 mg tid for akathisia/anxiety 12/24: Per collateral information obtained by JEIMY from pt's daughter/guardian, pt has had a long h/o med non-adherence and she feels that pt has at embellished her physical sx, including her gait, since she doesn't want to take an RODRIGUEZ. Will continue current med regimen/tx plan for now. T/W will call pt's dtr on Friday to discuss her tx plan 12/25: continue current management and treatment plan. 12/26: Continue current management and treatment plan. 12/27: Will titrate Seroquel to 150 mg tonight. Will f/u with pt's dtr re: pt's wish to titrate the Seroquel back up and take it crushed in applesauce at the facility where staff can observe her taking it, rather than trial another medication. Pt subjectively reports akathisia but sat calmly throughout the interview, acknowledged that the sx she attributed to akathisia might be at least partially related to anxiety 12/28: Will titrate Seroquel to 200 mg tonight. Pt continues to make subjective reports of akathisia but there is no objective evidence today. She has not utilized any prn lorazepam today. 12/30: Stable, denies SI. No objective evidence of akathisia but pt reports ongoing sx, which have been alleviated w/ clonazepam. Will possibly d/c back to SNF tomorrow after meeting w/ SNF staff Reason for continued inpatient stay Substantial Risk for: med/psych decompensation Time Spent With Patient Time: Total time managing care of this patient today ___30_ minutes.
[2024-12-30 20:30] VITALS: BP 107/53; PULSE 73; RESP 16; TEMP 36.3; O2SAT 98
[2024-12-30 20:36] VITALS: BP 107/53; PULSE 73
[2024-12-31 07:30] VITALS: BP 120/57; PULSE 71; RESP 16; TEMP 36.3; O2SAT 96
[2024-12-31 15:53] VITALS: BP 123/64; PULSE 66
--- NOTE | 2024-12-31 18:09 | P.PNPSI_ITS ---
Subjective Subjective Date of Service: 12/31/24 Reason For Visit: SI, akathisia Interim History: Chart reviewed, case discussed with tx team T/W attended a mtg along w/ SW, 2 nursing directors from [facility] and pt's daughter Juani joined over speaker phone. The [facility] staff reviewed their concerns about pt returning back, including pt's h/o medication non-adherence, SI prior to admission and not following some of their rules. She had reportedly gone into staff only areas in the facility, where she was previously allowed to enter earlier in her 8 yrs of residence there. Pt appropriately advocated for herself. Juani also advocated for her mother to return and will f/u with [facility]. Pt reports that she has been doing much better overall since admission. She still feels like she has akathisia but the sx are manageable w/ her current med regimen. She denies SI, non-suicidal thoughts of self harm, AH/VH. She slept better last night. Medication Compliance: Yes Attending Groups: Yes (attending most groups, which she finds to be helpful) Review of Systems Acute medical concerns: No Mental Status Exam Mental Status Exam Narrative: Appearance: Casually dressed. Grooming/hygiene wnl. Good eye contact Attitude: Cooperative Speech: Fluent and wnl in regard to volume, tone, prosody Motor activity: Calm. No evidence of restlessness. No tics, tremors or dyskinesias. Gait is steady Mood: as noted above Affect: appropriate Thought process: generally goal directed Thought content: as noted above. Perception: Denies AH/VH and does not appear to respond to internal stimuli Alert/oriented in all spheres Cognition grossly intact Insight: fair Judgment: fair Diagnostics Vital Signs (24Hr): Vital Signs - 24 hr 12/30/24 20:30 12/30/24 20:36 12/31/24 07:30 Temperature 97.4 F 97.3 F Pulse Rate 73 73 71 Respiratory Rate 16 16 Blood Pressure 107/53 L 107/53 L 120/57 L Pulse Oximetry 98 96 Oxygen Delivery Method Room Air Room Air 12/31/24 15:53 Temperature Pulse Rate 66 Respiratory Rate Blood Pressure 123/64 Pulse Oximetry Oxygen Delivery Method Labs 12/23/24 09:04 Medications Medications Current Medications Acetaminophen (Acetaminophen 325 Mg Tablet) 650 mg PO Q6H PRN PRN Reason: Headache/Pain, Scale 1-10 Last Admin: 12/28/24 17:58 Dose: 650 mg Al Hydroxide/Mg Hydroxide (Magnesium Hydrox/Alum Hydrox 30 Ml Oral.Susp) 30 ml PO Q6H PRN PRN Reason: Heartburn/Nausea Clonidine HCl (Clonidine Hcl 0.1 Mg Tablet) 0.1 mg PO DAILY [facility]; Protocol Last Admin: 12/31/24 08:26 Dose: 0.1 mg Fluoxetine HCl (Fluoxetine Hcl 20 Mg Capsule) 20 mg PO DAILY [facility] Last Admin: 12/31/24 08:26 Dose: 20 mg Hydroxyzine HCl (Hydroxyzine Hcl 25 Mg Tablet) 25 mg PO Q6H PRN PRN Reason: mild anxiety Last Admin: 12/30/24 20:35 Dose: 25 mg Lorazepam (Lorazepam 1 Mg Tablet) 1 mg PO TID PRN PRN Reason: Akathisia Last Admin: 12/31/24 11:46 Dose: 1 mg Magnesium Hydroxide (Milk Of Magnesia 30 Ml Oral.Susp) 30 ml PO DAILY PRN PRN Reason: Constipation Last Admin: 12/29/24 16:46 Dose: 30 ml Nicotine (Nicotine 21 Mg Patch.Td24) 21 mg TRANSDERMA DAILY PRN PRN Reason: nicotine craving Nicotine Polacrilex (Nicotine Polacrilex 2 Mg Gum) 2 mg BUCCAL Q2H PRN PRN Reason: Nicotine Cravings Propranolol HCl (Propranolol Hcl 20 Mg Tablet) 20 mg PO TID [facility]; Protocol Last Admin: 12/31/24 15:53 Dose: 20 mg Quetiapine Fumarate (Quetiapine Fumarate 50 Mg Tablet) 50 mg PO BID PRN PRN Reason: agitation Last Admin: 12/30/24 20:37 Dose: 50 mg Quetiapine Fumarate (Quetiapine Fumarate 200 Mg Tablet) 200 mg PO BEDTIME HERNAN Last Admin: 12/30/24 20:37 Dose: 200 mg Trazodone HCl (Trazodone Hcl 50 Mg Tablet) 50 mg PO BEDTIME MRX1 PRN PRN Reason: Insomnia Allergies Allergies Allergy/AdvReac Type Severity Reaction Status Date / Time No Known Allergies (No Known Allergy Unverified 11/25/19 19:01 Allergies*) Assessment & Plan Assessment & Plan (1) Schizoaffective disorder, bipolar type: Status: Acute Code(s): F25.0 - Schizoaffective disorder, bipolar type (2) Akathisia: Status: Acute Code(s): G25.71 - Drug induced akathisia (3) Suicide ideation: Status: Acute Code(s): R45.851 - Suicidal ideations Plan Ms. Powers is a 69 yo F with h/o schizoaffective disorder bipolar type who was brought to [facility] by ambulance from [facility] after she endorsed SI to choke herself in the setting of severe akathisia. She was transferred to [facility] inpatient psychiatric unit for tx of depression and SI. Pt is feeling better since she was started on lorazepam and propranolol for the akathisia. She does not want to have another Invega injection since it caused the akathisia. She endorses some dizziness and wonders if it's due to being on the Seroquel and Invega. She denies current sx of psychosis and her thought process is clear. She is agreeable w/plan to taper the Seroquel from current dose of 200 mg qhs to 100 mg qhs for now. Plan: Admitted to for safety and stabilization Legal status: CV 15 min safety checks labs, EKG and admission medical consult reviewed reviewed OT eval ordered by hospitalist Standard safety checks Milieu therapy Meds- -Need to clarify when last dose of Invega Sustenna 117 mg was given. Pt doesn't want to take it again regardless -Decrease Seroquel to 100 mg qhs for now (from most recent home dose of 200 mg qhs). Pt would like to titrate it back up to 400 mg as the Invega wears off -Seroquel 50 mg bid prn for agitation -Continue lorazepam 1 mg tid prn for akathisia -Continue fluoxetine 20 mg qam -Continue clonidine 0.1 mg qd (for restlessness and anxiety) -Continue propranolol 20 mg tid for akathisia/anxiety 12/24: Per collateral information obtained by JEIMY from pt's daughter/guardian, pt has had a long h/o med non-adherence and she feels that pt has at embellished her physical sx, including her gait, since she doesn't want to take an RODRIGUEZ. Will continue current med regimen/tx plan for now. T/W will call pt's dtr on Friday to discuss her tx plan 12/25: continue current management and treatment plan. 12/26: Continue current management and treatment plan. 12/27: Will titrate Seroquel to 150 mg tonight. Will f/u with pt's dtr re: pt's wish to titrate the Seroquel back up and take it crushed in applesauce at the facility where staff can observe her taking it, rather than trial another medication. Pt subjectively reports akathisia but sat calmly throughout the interview, acknowledged that the sx she attributed to akathisia might be at least partially related to anxiety 12/28: Will titrate Seroquel to 200 mg tonight. Pt continues to make subjective reports of akathisia but there is no objective evidence today. She has not utilized any prn lorazepam today. 12/30: Stable, denies SI. No objective evidence of akathisia but pt reports ongoing sx, which have been alleviated w/ clonazepam. Will possibly d/c back to SNF tomorrow after meeting w/ SNF staff 12/31: Stable, seems to be at baseline aside from subjective c/o akathisia with no objective findings. Had mtg w/ [facility] staff, who expressed 'safety' concerns for pt to return home. T/W informed them that pt has been stable, maintained appropriate behaviors here, has adhered to her medications and has denied SI since early in her admisison. Pt's dtr will f/u with [facility]. Will likely d/c Friday Reason for continued inpatient stay Substantial Risk for: med/psych decompensation Time Spent With Patient Time: Total time managing care of this patient today _35___ minutes.
[2024-12-31 20:00] VITALS: BP 113/54; PULSE 77; RESP 16; TEMP 36.5; O2SAT 98
[2024-12-31 20:58] VITALS: BP 113/54; PULSE 77
[2025-01-01 07:43] VITALS: BP 140/67; PULSE 60; RESP 16; TEMP 36.6; O2SAT 97
[2025-01-01 09:03] VITALS: BP 140/67; PULSE 60
[2025-01-01 14:57] VITALS: BP 107/56; PULSE 72
--- NOTE | 2025-01-01 15:17 | P.PNPSI_ITS ---
Subjective Subjective Date of Service: 01/01/25 Reason For Visit: SI, akathisia Interim History: Laying in bed. keeping to self. Patient reports feeling depressed; she reports sleeping well last night. denies SI/HI/VH/AH. Encouarged to leave room and not continue laying in bed. continue tx plan. Medication Compliance: Yes Side effects from medications: No Attending Groups: No Mental Status Exam Mental Status Exam Patient Appearance: Appropriate Patient Orientation: Person, Place, Time and Situation Level of Consciousness: Awake Patient Behavior: Cooperative Mood Description: Depressed Affect Description: Depressed Ability to Follow Directions: Good Speech Pattern: Clear Memory Description: Intact Hallucinations: None Delusions: Not Present Thought Process: Intact Thought Content: positive for Intact Diagnostics Vital Signs (24Hr): Vital Signs - 24 hr 12/31/24 15:53 12/31/24 20:00 12/31/24 20:58 Temperature 97.7 F Pulse Rate 66 77 77 Respiratory Rate 16 Blood Pressure 123/64 113/54 L 113/54 L Pulse Oximetry 98 Oxygen Delivery Method Room Air 01/01/25 07:43 01/01/25 09:03 01/01/25 09:03 Temperature 97.8 F Pulse Rate 60 60 Respiratory Rate 16 Blood Pressure 140/67 H 140/67 H 140/67 H Pulse Oximetry 97 Oxygen Delivery Method Room Air 01/01/25 14:57 Temperature Pulse Rate 72 Respiratory Rate Blood Pressure 107/56 L Pulse Oximetry Oxygen Delivery Method Labs 12/23/24 09:04 Medications Medications Current Medications Acetaminophen (Acetaminophen 325 Mg Tablet) 650 mg PO Q6H PRN PRN Reason: Headache/Pain, Scale 1-10 Last Admin: 01/01/25 10:42 Dose: 650 mg Al Hydroxide/Mg Hydroxide (Magnesium Hydrox/Alum Hydrox 30 Ml Oral.Susp) 30 ml PO Q6H PRN PRN Reason: Heartburn/Nausea Clonidine HCl (Clonidine Hcl 0.1 Mg Tablet) 0.1 mg PO DAILY [facility]; Protocol Last Admin: 01/01/25 09:03 Dose: 0.1 mg Fluoxetine HCl (Fluoxetine Hcl 20 Mg Capsule) 20 mg PO DAILY [facility] Last Admin: 01/01/25 09:03 Dose: 20 mg Hydroxyzine HCl (Hydroxyzine Hcl 25 Mg Tablet) 25 mg PO Q6H PRN PRN Reason: mild anxiety Last Admin: 12/30/24 20:35 Dose: 25 mg Lorazepam (Lorazepam 1 Mg Tablet) 1 mg PO TID PRN PRN Reason: Akathisia Last Admin: 01/01/25 09:28 Dose: 1 mg Magnesium Hydroxide (Milk Of Magnesia 30 Ml Oral.Susp) 30 ml PO DAILY PRN PRN Reason: Constipation Last Admin: 12/29/24 16:46 Dose: 30 ml Nicotine (Nicotine 21 Mg Patch.Td24) 21 mg TRANSDERMA DAILY PRN PRN Reason: nicotine craving Nicotine Polacrilex (Nicotine Polacrilex 2 Mg Gum) 2 mg BUCCAL Q2H PRN PRN Reason: Nicotine Cravings Propranolol HCl (Propranolol Hcl 20 Mg Tablet) 20 mg PO TID [facility]; Protocol Last Admin: 01/01/25 14:57 Dose: 20 mg Quetiapine Fumarate (Quetiapine Fumarate 50 Mg Tablet) 50 mg PO BID PRN PRN Reason: agitation Last Admin: 12/30/24 20:37 Dose: 50 mg Quetiapine Fumarate (Quetiapine Fumarate 200 Mg Tablet) 200 mg PO BEDTIME [facility] Last Admin: 12/31/24 20:58 Dose: 200 mg Trazodone HCl (Trazodone Hcl 50 Mg Tablet) 50 mg PO BEDTIME MRX1 PRN PRN Reason: Insomnia Allergies Allergies Allergy/AdvReac Type Severity Reaction Status Date / Time No Known Allergies (No Known Allergy Unverified 11/25/19 19:01 Allergies*) Assessment & Plan Assessment & Plan (1) Schizoaffective disorder, bipolar type: Status: Acute Code(s): F25.0 - Schizoaffective disorder, bipolar type (2) Akathisia: Status: Acute Code(s): G25.71 - Drug induced akathisia (3) Suicide ideation: Status: Acute Code(s): R45.851 - Suicidal ideations Plan Ms. Powers is a 69 yo F with h/o schizoaffective disorder bipolar type who was brought to [facility] by ambulance from [facility] after she endorsed SI to choke herself in the setting of severe akathisia. She was transferred to [facility] [place] for tx of depression and SI. Pt is feeling better since she was started on lorazepam and propranolol for the akathisia. She does not want to have another Invega injection since it caused the akathisia. She endorses some dizziness and wonders if it's due to being on the Seroquel and Invega. She denies current sx of psychosis and her thought process is clear. She is agreeable w/plan to taper the Seroquel from current dose of 200 mg qhs to 100 mg qhs for now. Plan: Admitted to for safety and stabilization Legal status: CV 15 min safety checks labs, EKG and admission medical consult reviewed reviewed OT eval ordered by hospitalist Standard safety checks Milieu therapy Meds- -Need to clarify when last dose of Invega Sustenna 117 mg was given. Pt doesn't want to take it again regardless -Decrease Seroquel to 100 mg qhs for now (from most recent home dose of 200 mg qhs). Pt would like to titrate it back up to 400 mg as the Invega wears off -Seroquel 50 mg bid prn for agitation -Continue lorazepam 1 mg tid prn for akathisia -Continue fluoxetine 20 mg qam -Continue clonidine 0.1 mg qd (for restlessness and anxiety) -Continue propranolol 20 mg tid for akathisia/anxiety 12/24: Per collateral information obtained by JEIMY from pt's daughter/guardian, pt has had a long h/o med non-adherence and she feels that pt has at embellished her physical sx, including her gait, since she doesn't want to take an RODRIGUEZ. Will continue current med regimen/tx plan for now. T/W will call pt's dtr on Friday to discuss her tx plan 12/25: continue current management and treatment plan. 12/26: Continue current management and treatment plan. 12/27: Will titrate Seroquel to 150 mg tonight. Will f/u with pt's dtr re: pt's wish to titrate the Seroquel back up and take it crushed in applesauce at the facility where staff can observe her taking it, rather than trial another medication. Pt subjectively reports akathisia but sat calmly throughout the interview, acknowledged that the sx she attributed to akathisia might be at least partially related to anxiety 12/28: Will titrate Seroquel to 200 mg tonight. Pt continues to make subjective reports of akathisia but there is no objective evidence today. She has not utilized any prn lorazepam today. 12/30: Stable, denies SI. No objective evidence of akathisia but pt reports ongoing sx, which have been alleviated w/ clonazepam. Will possibly d/c back to SNF tomorrow after meeting w/ SNF staff 12/31: Stable, seems to be at baseline aside from subjective c/o akathisia with no objective findings. Had mtg w/ [place] staff, who expressed 'safety' concerns for pt to return home. T/W informed them that pt has been stable, maintained appropriate behaviors here, has adhered to her medications and has denied SI since early in her admisison. Pt's dtr will f/u with [place]. Will likely d/c Monday 01/01: continue tx plan. Patient educated on: diagnosis, medication risk/benefits and therapeutic strategies Reason for continued inpatient stay Substantial Risk for: med/psych decompensation Time Spent With Patient Time: Total time managing care of this patient today _15___ minutes.
[2025-01-01 19:48] VITALS: BP 102/59; PULSE 77
[2025-01-01 20:00] VITALS: BP 102/59; PULSE 72; RESP 16; TEMP 36.5; O2SAT 97
[2025-01-02 08:00] VITALS: BP 137/67; PULSE 67; RESP 14; TEMP 35.9; O2SAT 97
[2025-01-02 08:27] VITALS: BP 137/67; PULSE 67; RESP 14; TEMP 35.9; O2SAT 97
--- NOTE | 2025-01-02 12:38 | HO.PSYCHPN ---
Subjective Subjective Date of Service: 01/02/25 Reason For Visit: SI, akathisia Subjective Notes: Conditional Voluntary Interim History: Active on unit. keeping to self. Patient reports feeling good and ready to go home . She reports poor sleep d/t unit noise. denies SI/HI/VH/AH. continue tx plan. Medication Compliance: Yes Side effects from medications: No Attending Groups: Yes Mental Status Exam Mental Status Exam Patient Appearance: Appropriate Patient Orientation: Person, Place, Time and Situation Level of Consciousness: Awake Patient Behavior: Cooperative Mood Description: Calm Affect Description: Calm Ability to Follow Directions: Good Speech Pattern: Clear Memory Description: Intact Hallucinations: None Delusions: Not Present Thought Process: Intact Thought Content: positive for Intact Diagnostics Vital Signs (24Hr): Vital Signs - 24 hr 01/01/25 14:57 01/01/25 19:48 01/01/25 20:00 Temperature 97.7 F Pulse Rate 72 77 72 Respiratory Rate 16 Blood Pressure 107/56 L 102/59 L 102/59 L Pulse Oximetry 97 Oxygen Delivery Method Room Air 01/02/25 08:00 01/02/25 08:27 Temperature 96.7 F L 96.7 F L Pulse Rate 67 67 Respiratory Rate 14 14 Blood Pressure 137/67 137/67 Pulse Oximetry 97 97 Oxygen Delivery Method Room Air Room Air Labs 12/23/24 09:04 Medications Medications Current Medications Acetaminophen (Acetaminophen 325 Mg Tablet) 650 mg PO Q6H PRN PRN Reason: Headache/Pain, Scale 1-10 Last Admin: 01/01/25 10:42 Dose: 650 mg Al Hydroxide/Mg Hydroxide (Magnesium Hydrox/Alum Hydrox 30 Ml Oral.Susp) 30 ml PO Q6H PRN PRN Reason: Heartburn/Nausea Clonidine HCl (Clonidine Hcl 0.1 Mg Tablet) 0.1 mg PO DAILY [facility]; Protocol Last Admin: 01/02/25 08:43 Dose: 0.1 mg Fluoxetine HCl (Fluoxetine Hcl 20 Mg Capsule) 20 mg PO DAILY HERNAN Last Admin: 01/02/25 08:43 Dose: 20 mg Hydroxyzine HCl (Hydroxyzine Hcl 25 Mg Tablet) 25 mg PO Q6H PRN PRN Reason: mild anxiety Last Admin: 12/30/24 20:35 Dose: 25 mg Lorazepam (Lorazepam 1 Mg Tablet) 1 mg PO TID PRN PRN Reason: Akathisia Last Admin: 01/02/25 12:26 Dose: 1 mg Magnesium Hydroxide (Milk Of Magnesia 30 Ml Oral.Susp) 30 ml PO DAILY PRN PRN Reason: Constipation Last Admin: 12/29/24 16:46 Dose: 30 ml Nicotine (Nicotine 21 Mg Patch.Td24) 21 mg TRANSDERMA DAILY PRN PRN Reason: nicotine craving Nicotine Polacrilex (Nicotine Polacrilex 2 Mg Gum) 2 mg BUCCAL Q2H PRN PRN Reason: Nicotine Cravings Propranolol HCl (Propranolol Hcl 20 Mg Tablet) 20 mg PO TID [facility]; Protocol Last Admin: 01/02/25 08:43 Dose: 20 mg Quetiapine Fumarate (Quetiapine Fumarate 50 Mg Tablet) 50 mg PO BID PRN PRN Reason: agitation Last Admin: 01/02/25 04:18 Dose: 50 mg Quetiapine Fumarate (Quetiapine Fumarate 200 Mg Tablet) 200 mg PO BEDTIME HERNAN Last Admin: 01/01/25 19:48 Dose: 200 mg Trazodone HCl (Trazodone Hcl 50 Mg Tablet) 50 mg PO BEDTIME MRX1 PRN PRN Reason: Insomnia Allergies Allergies Allergy/AdvReac Type Severity Reaction Status Date / Time No Known Allergies (No Known Allergy Unverified 11/25/19 19:01 Allergies*) Assessment & Plan Assessment & Plan (1) Schizoaffective disorder, bipolar type: Status: Acute Code(s): F25.0 - Schizoaffective disorder, bipolar type (2) Akathisia: Status: Acute Code(s): G25.71 - Drug induced akathisia (3) Suicide ideation: Status: Acute Code(s): R45.851 - Suicidal ideations Plan Ms. Powers is a 69 yo F with h/o schizoaffective disorder bipolar type who was brought to [facility] by ambulance from [facility] after she endorsed SI to choke herself in the setting of severe akathisia. She was [place] [facility] [place] for tx of depression and SI. Pt is feeling better since she was started on lorazepam and propranolol for the akathisia. She does not want to have another Invega injection since it caused the akathisia. She endorses some dizziness and wonders if it's due to being on the Seroquel and Invega. She denies current sx of psychosis and her thought process is clear. She is agreeable w/plan to taper the Seroquel from current dose of 200 mg qhs to 100 mg qhs for now. Plan: Admitted to [facility] for safety and stabilization Legal status: CV 15 min safety checks labs, EKG and admission medical consult reviewed reviewed OT eval ordered by hospitalist Standard safety checks Milieu therapy Meds- -Need to clarify when last dose of Invega Sustenna 117 mg was given. Pt doesn't want to take it again regardless -Decrease Seroquel to 100 mg qhs for now (from most recent home dose of 200 mg qhs). Pt would like to titrate it back up to 400 mg as the Invega wears off -Seroquel 50 mg bid prn for agitation -Continue lorazepam 1 mg tid prn for akathisia -Continue fluoxetine 20 mg qam -Continue clonidine 0.1 mg qd (for restlessness and anxiety) -Continue propranolol 20 mg tid for akathisia/anxiety 12/24: Per collateral information obtained by JEIMY from pt's daughter/guardian, pt has had a long h/o med non-adherence and she feels that pt has at embellished her physical sx, including her gait, since she doesn't want to take an RODRIGUEZ. Will continue current med regimen/tx plan for now. T/W will call pt's dtr on Friday to discuss her tx plan 12/25: continue current management and treatment plan. 12/26: Continue current management and treatment plan. 12/27: Will titrate Seroquel to 150 mg tonight. Will f/u with pt's dtr re: pt's wish to titrate the Seroquel back up and take it crushed in applesauce at the facility where staff can observe her taking it, rather than trial another medication. Pt subjectively reports akathisia but sat calmly throughout the interview, acknowledged that the sx she attributed to akathisia might be at least partially related to anxiety 12/28: Will titrate Seroquel to 200 mg tonight. Pt continues to make subjective reports of akathisia but there is no objective evidence today. She has not utilized any prn lorazepam today. 12/29: Will continue current med regimen/tx plan today. 01/02: Active on unit. keeping to self. Patient reports feeling good and ready to go home . She reports poor sleep d/t unit noise. denies SI/HI/VH/AH. continue tx plan. Patient educated on: diagnosis and medication risk/benefits Reason for continued inpatient stay Substantial Risk for: med/psych decompensation Time Spent With Patient Time: Total time managing care of this patient today _10___ minutes.
[2025-01-02 14:23] VITALS: BP 121/67; PULSE 76
[2025-01-02 20:00] VITALS: BP 102/50; PULSE 67; RESP 14; TEMP 36.6; O2SAT 97
[2025-01-03 08:47] VITALS: BP 137/78
[2025-01-03 08:48] VITALS: BP 137/78; PULSE 65
--- NOTE | 2025-01-03 11:44 | PM.PSYDC ---
DS: Providers Provider Date of Service: 01/03/25 Date of admission: 12/22/24 18:13 Date of discharge: 01/03/25 Primary care physician: Unknown Physician Attending physician on admission: Lorena Gagnon Consults: 12/22/24 18:35 Consult to Hospitalist Routine Comment: Consulting Provider: [facility] Reason For Exam: New external admit H+P Attending physician on discharge: Lorena Gagnon DS: Diagnosis Discharge Diagnosis (1) Schizoaffective disorder, bipolar type: Status: Acute (2) Akathisia: Status: Acute (3) Suicide ideation: Status: Acute DS: Medications Discharge Medications Home Medications: Home Medications ?Medication ?Instructions ?Recorded ?Confirmed fluoxetine 20 mg capsule 20 mg PO QAM 12/22/24 12/22/24 lorazepam 1 mg tablet 1 mg PO TID PRN Akathisia 12/22/24 12/22/24 propranolol 10 mg tablet 20 mg PO TID 12/22/24 12/22/24 Previous Rx's ?Medication ?Instructions ?Recorded acetaminophen 325 mg tablet 650 mg (2 x 325 mg) PO Q6H PRN 01/03/25 Headache/Pain, Scale 1-10 #0 tabs clonidine HCl 0.1 mg tablet 0.1 mg PO DAILY #0 tabs 01/03/25 hydroxyzine HCl 25 mg tablet 25 mg PO BID PRN mild anxiety 30 01/03/25 days #0 tabs quetiapine 200 mg tablet 200 mg PO BEDTIME 30 days #0 tabs 01/03/25 quetiapine 50 mg tablet 50 mg PO BID PRN agitation or 01/03/25 severe anxiety 30 days #0 tabs DS: Summary Hospital Course Hospital Course: Ms. Powers is a 69 yo F with h/o schizoaffective disorder bipolar type who was brought to [facility] by ambulance from [facility] after she endorsed SI to choke herself in the setting of severe akathisia. She was transferred to [facility] inpatient psychiatric unit for tx of depression and SI, where she was admitted on a CV. On admission, pt reported that she had been stable on Seroquel 400 mg qd x 8 yrs but quit taking it in June 2024 since something felt off . The packaging and taste were different and she didn't feel right. She also stopped taking her Prozac around that time. She felt fine but she reports that her family knew that something was off. She re-started her meds after she was off of them x 6 wks. Per [facility] assessment, pt's dtr reported that pt was cheeking her medications and they therefore discussed an RODRIGUEZ. Pt was started on oral Invega and then received her first two shots of Invega Sustenna in Nov. Pt reported that the Invega Sustenna caused extreme akathisia, characterized by extreme restlessness,, feeling like she's crawling out of her skin, pacing. She's experienced leg stiffness and difficulty walking. She experienced depression and SI in the setting of these sx. She was started on propranolol and lorazepam, which reduced the akathisia significantly. Pt was continued on Seroquel, which was gradually titrated to 200 mg at qhs + 50 mg bid prn for agitation/severe anxiety. She took the prn Seroquel one time, on the rod machine operator of 01/03 due to insomnia. She was continued on lorazepam 1 mg tid prn for akathisia, which she took sparingly. Psychiatric ROS- Denies current sx of psychosis. Endorses h/o paranoia, denies h/o hallucinations Denies recent manic episodes Endorses low energy Sleeping okay Poor concentration Stable appetite Denies violent ideation Past Psychiatric History: Recently had an intake at [facility] PCP has been prescribing her psychotropic meds Pt has had ~7 inpatient psychiatric admissions. Her first hospitalization occurred when her youngest was 4y/o. Most recent admission was at [facility] in Oct 2024. h/o multiple suicide attempts, including drinking antifreeze and overdosing on medications Prior Med Trials: Pt reports that she's tried many psychiatric meds but can't recall them all Risperidone, Abilify (felt wired), Geodon (bad dreams) Wellbutrin Medical Evaluation Reviewed: Yes [facility] Medical History (Updated 12/23/24 @ 19:33 by Lorena Gagnon MD) Suicide ideation Family History: none reported Social History: Pt has two daughters and 1 son, who are all in the . They are all supportive. One of dtrs is a psychiatric nurse who works at the [employer] in [place]. Time spent discussing smoking cessation with patient: 3 to 10 minutes Time Spent with Patient Time attestation: Total time managing care of this patient today ____ minutes. Discharge Plan Discharge Anticipated Discharge Date/Time: 01/03/25 12:30 Patient Disposition: Xfer SNF Discharge Diagnosis: Schizoaffective disorder, bipolar type Akathisia Referrals: Therapy & Psychiatry [Other] - 1 Week Referral Note: *Please follow up with the agency above to find out when your aftercare appointments are scheduled. A referral for therapy and psychiatry services was sent on your behalf. [facility] [Provider Group] - 01/11/25 3:00 pm Referral Note: 01-03-25 Your follow up appt has been scheduled with VIRIDIANA Irizarry on 01-11-25 @ 3pm Discharge Medications: New acetaminophen 325 mg Tablet 650 mg PO Q6H PRN (Reason: Headache/Pain, Scale 1-10) Qty: 0 0RF hydroxyzine HCl 25 mg Tablet 25 mg PO BID PRN (Reason: mild anxiety) 30 Days Qty: 0 0RF quetiapine 200 mg Tablet 200 mg PO BEDTIME 30 Days Qty: 0 0RF quetiapine 50 mg Tablet 50 mg PO BID PRN (Reason: agitation or severe anxiety) 30 Days Qty: 0 0RF clonidine HCl 0.1 mg Tablet 0.1 mg PO DAILY Qty: 0 0RF Protocol: Hold for SBP< HOLD for SBP < : 90 Continued propranolol 10 mg tablet 20 mg PO TID lorazepam 1 mg tablet 1 mg PO TID PRN (Reason: Akathisia) fluoxetine 20 mg capsule 20 mg PO QAM Discontinued clonazepam 1 mg tablet 1 mg PO TID PRN (Reason: Anxiety) clonidine HCl 0.1 mg Tablet 0.1 mg PO DAILY quetiapine 200 mg tablet 200 mg PO BID quetiapine 50 mg tablet 50 mg PO BEDTIME Discharge Orders: Discharge Order (Routine); Ordered 01/03/25 Ordered By: Lorena Gagnon Diet: Regular diet Activity on Discharge: No Restrictions Stand Alone Forms: Patient Portal Discharge page, Community Support Print Language: Slovak Care Plan Goals: Maintain safe behaviors Utilize coping skills Take medications as prescribed Maintain regular follow-ups with your outpatient providers Health Concerns: Depression with SI. SI resolved Akathisia- significantly improved Plan of Treatment: Follow up with your psychiatric provider, PCP and other outpatient providers Take your medication as prescribed -Attend your appointment with your new psychiatric provider. -You can work with your provider to gradually increase the Seroquel back to the previously effective dose of 400 mg at bedtime. -Recommend mouth checks after taking medication to ensure adherence and/or taking quetiapine crushed in applesauce while being monitored by staff. Assessment: Risk assessment at the time of discharge: Patient was interviewed on the day of discharge and found to be fully oriented, without any SI or violent ideation. Pt has improved insight and judgment and plans to continue treatment Pt is currently at low risk risk of harm to self or others and has a safety plan that includes presenting to the closest ER or calling 911 if feeling unsafe. Pt has been observed closely by unit staff and has not engaged in any behaviors that suggest dangerous to self or others and has demonstrated appropriate behaviors and impulse control.
== END 2025-01-03 12:00 | disposition skilled nursing facility (03) | DRG 885 ==
PROVIDERS: Nurse Practitioner Psychiatric/Mental Health; Admitting Provider Psychiatry & Neurology Psychiatry; Visit Provider Psychiatry & Neurology Psychiatry
DX: F25.0 Schizoaffective disorder, bipolar type (principal); R45.851 Suicidal ideations; F17.210 Nicotine dependence, cigarettes, uncomplicated; G25.71 Drug induced akathisia; Z91.148 Patient's other noncompliance with medication regimen for other reason; Z71.6 Tobacco abuse counseling; Z79.899 Other long term (current) drug therapy
CPT/HCPCS: 36415; 80053; 80061; 82607; 83036; 84439; 84443

== ENCOUNTER → 2024-12-22 18:13 | Outpatient (BNV) | payer MEDICARE, MEDICAID, SELFPAY | PROVIDERS: Admitting Provider Psychiatry & Neurology Psychiatry; Visit Provider Nurse Practitioner Family | DX: R45.851 Suicidal ideations (principal) | CPT/HCPCS: 99221 ==

== ENCOUNTER → 2024-12-22 18:13 | Outpatient (BNV) | payer MEDICARE, MEDICAID, SELFPAY | PROVIDERS: Admitting Provider Psychiatry & Neurology Psychiatry; Visit Provider Psychiatry & Neurology Psychiatry | DX: F25.0 Schizoaffective disorder, bipolar type (principal); G25.71 Drug induced akathisia; R45.851 Suicidal ideations | CPT/HCPCS: 90792; 99231; 99232 ==